=== PATIENT | male | born 1935 | race Caucasian/White ===

== ENCOUNTER 2017-11-11 13:12 | Inpatient (IN) | payer MEDICARE, BC ==
[2017-11-11] MEDS: DEXTROSE 5%-0.45% NACL 1,000 ML IV ×2 (02:00→15:30)
[~2017-11-11 13:12] MED LIST: ETOMIDATE 20 MG INJ; LORAZEPAM 2 MG INJ; MIDAZOLAM 1 MG/ML 2 ML INJ; PROPOFOL 200 MG INJ; SUCCINYLCHOLINE CHLORIDE 100 MG/5 ML SYG IV
[2017-11-11] MEDS: SODIUM CHLORIDE 0.9% 1L BAG IV* (13:29)
[2017-11-11] MEDS: CEFTRIAXONE 1 GM/50 ML (PMX) 50 ML IVPB (13:32)
[2017-11-11] MEDS: PROPOFOL 100 ML IV (13:41)
[2017-11-11 13:44] LABS: ADD MAN DIFF? NO
[2017-11-11 13:55] LABS: WHITE BLOOD COUNT 19.3 10^3/ul (4.8-10.8)
[2017-11-11 13:55] LABS: ADD UMIC YES; BASOPHILS % 0.2 % (0.0-2.0); HEMATOCRIT 51.6 % (42.0-52.0); HEMOGLOBIN 15.6 g/dl (14.0-18.0); LYMPHOCYTES # 4.7 10^3/ul (0.8-2.9); LYMPHOCYTES % 24.5 % (15.0-51.0); MEAN CORPUSCULAR HEMOGLOBIN 26.9 pg (29.0-33.0); MEAN CORPUSCULAR HGB CONC 30.2 g/dl (32.0-37.0); MEAN CORPUSCULAR VOLUME 88.8 fl (82.0-101.0); MEAN PLATELET VOLUME 11.2 fl (7.4-10.4); MONOCYTE # 1.2 10^3/ul (0.3-0.9); NEUTROPHIL # 13.3 10^3/ul (1.6-7.5); NEUTROPHILS % 68.9 % (39.0-77.0); PLATELET COUNT 212 10^3/UL (140-415); RED BLOOD COUNT 5.81 10^6/ul (4.70-6.10); RED CELL DISTRIBUTION WIDTH 12.7 % (11.5-14.5); UR ASCORBIC ACID NEGATIVE (NEGATIVE); UR BILIRUBIN (Dip) NEGATIVE (NEGATIVE); UR BLOOD (Dip) 2+ mg/dL (NEGATIVE); UR CLARITY SLIGHTLY CLOUDY (CLEAR); UR COLOR YELLOW (YELLOW); UR GLUCOSE (Dip) 3+ mg/dL (NEGATIVE); UR KETONES (Dip) 1+ mg/dL (NEGATIVE); UR LEUKOCYTE ESTERASE (Dip) NEGATIVE Leu/ul (NEGATIVE); UR NITRITE (Dip) NEGATIVE (NEGATIVE); UR RBC 2 /HPF (0-5); UR SPECIFIC GRAVITY (Dip) 1.025 (1.003-1.030); UR SQUAMOUS EPITHELIAL CELL FEW /HPF (FEW); UR TOTAL PROTEIN (Dip) NEGATIVE (NEGATIVE); UR UROBILINOGEN (Dip) NEGATIVE (NEGATIVE); UR WBC 1 /HPF (0-5)
[2017-11-11 14:03] LABS: AADO2 Arterial 169.8 mmHg (7.0-24.0); Allen Test ACCEPTAB; Arterial Base Excess -16.5 mmol/L (-3.0-3); Arterial Blood Gas Oxygen Sat 99.8 mmHG (95.0-100.0); Arterial COHb 0.3 % (0.0-3.0); Arterial HCO3 11.2 mmol/L (22.0-26.0); Arterial MetHb 0.5 % (0.0-1.5); Arterial Total Hemglobin 15.5 g/dl (12.0-18.0); Arterial pCO2 32.9 mmhg (35-45); MODE VENT - AC; Site Left Radial
[2017-11-11 14:08] LABS: ALANINE AMINOTRANSFERASE 40 IU/L (13-69); ALBUMIN 4.3 g/dl (3.3-4.9); ALBUMIN/GLOBULIN RATIO 1.38; ALKALINE PHOSPHATASE 81 IU/L (42-121); ANION GAP 31 (8-16); ASPARTATE AMINO TRANSFERASE 46 IU/L (15-46); BILIRUBIN,INDIRECT 1.7 mg/dl (0-1.1); BILIRUBIN,TOTAL 1.7 mg/dl (0.2-1.3); BLOOD UREA NITROGEN 57 mg/dl (7-20); CALCIUM 8.7 mg/dl (8.4-10.2); CARBON DIOXIDE 12 mmol/L (21-31); CHLORIDE 112 mmol/L (97-110); CREATINE KINASE 1412 IU/L (23-200); CREATININE 2.53 mg/dl (0.61-1.24); LIPASE 45 U/L (23-300); MAGNESIUM 2.9 mg/dl (1.7-2.5); POTASSIUM 5.3 mmol/L (3.5-5.1); SODIUM 150 mmol/L (135-144); TOTAL PROTEIN 7.4 g/dl (6.1-8.1)
[2017-11-11] MEDS: PIPER-TAZO 3.375 GM IV (PMX) 100 ML IVPB (14:08)
[2017-11-11] MEDS: ACETAMINOPHEN 650 MG SUPP PR (14:08)
[2017-11-11 14:10] LABS: INR 1.09; PROTIME 14.2 Sec (11.9-14.9); PT RATIO 1.1
[2017-11-11 14:11] LABS: PARTIAL THROMBOPLASTIN TIME 23.5 Sec (25.0-35.0)
[2017-11-11 14:19] LABS: GLUCOSE 869 mg/dl (70-220); TROPONIN-I 0.041 ng/ml (0.000-0.120)
[2017-11-11] MEDS: MIDAZOLAM (DRIP) 50 mg/50 mL 50 ML IV (14:19)
[2017-11-11] MEDS ORDERED: POTASSIUM CHLORIDE IV (14:27)
[2017-11-11] MEDS ORDERED: SODIUM CHLORIDE IV (14:27)
[2017-11-11] MEDS ORDERED: DEXTROSE 10% IV (14:27)
[2017-11-11] MEDS ORDERED: POTASSIUM CHLORIDE 30 MEQ in SOD CHLORIDE 0.9% 1,000 ML IV (14:27)
[2017-11-11] MEDS ORDERED: POTASSIUM CHLORIDE 50 ML IVPB (14:30)
[2017-11-11] MEDS ORDERED: DEXTROSE 50% 50 ML SYRINGE IV ×2 (15:00)
[2017-11-11] MEDS: INSULIN HUMAN REGULAR 100 UNIT in SOD CHLORIDE 0.9% 99 ML IV ×2 (15:15→15:16)
[2017-11-11] MEDS: ACCU-CHEK XX ×9 (15:16→23:00)
[2017-11-11] MEDS ORDERED: ACETAMINOPHEN 325 MG TAB PO (15:30)
[2017-11-11] MEDS ORDERED: ONDANSETRON 4 MG INJ IV (15:30)
[2017-11-11] MEDS ORDERED: MAGNESIUM HYDROXIDE 30ML CUP PO (15:30)
[2017-11-11] MEDS ORDERED: NACL 0.9% 3 ML SYG IV (15:30)
[2017-11-11] MEDS ORDERED: HYDROCODONE/APAP (5/325) TAB PO (15:30)
[2017-11-11] MEDS ORDERED: BISACODYL (EC) 5 MG TAB PO (15:30)
[2017-11-11] MEDS ORDERED: DOCUSATE SODIUM 100 MG CAP PO (15:30)
[2017-11-11] MEDS: DILTIAZEM 25 MG INJ IV (15:43)
[2017-11-11] MEDS: ETOMIDATE 20 MG INJ IV (16:30)
[2017-11-11] MEDS: PROPOFOL 200 MG INJ IV (16:30)
[2017-11-11] MEDS: SUCCINYLCHOLINE CHLORIDE 100 MG/5 ML SYG IV (16:30)
[2017-11-11] MEDS: LORAZEPAM 2 MG INJ IV (16:30)
[2017-11-11] MEDS: MIDAZOLAM 1 MG/ML 2 ML INJ IV (16:30)
[2017-11-11 16:49] LABS: LACTIC ACID 2.7 mmol/L (0.5-2.0)
[2017-11-11 16:53] LABS: AMPHETAMINE/METHAMPHETAMINE Negative (NEGATIVE); BARBITURATES Negative (NEGATIVE); CANNABINOIDS Negative (NEGATIVE); COCAINE Negative (NEGATIVE); OPIATES Negative (NEGATIVE)
[2017-11-11 16:54] LABS: BENZODIAZEPINES Positive (NEGATIVE)
[2017-11-11 18:15] LABS: URIC ACID 11.3 mg/dl (3.1-7.9)
[2017-11-11 18:17] LABS: ALBUMIN 3.5 g/dl (3.3-4.9); ANION GAP 17 (8-16); BLOOD UREA NITROGEN 65 mg/dl (7-20); CALCIUM 8.2 mg/dl (8.4-10.2); CARBON DIOXIDE 16 mmol/L (21-31); CHLORIDE 125 mmol/L (97-110); CREATININE 2.08 mg/dl (0.61-1.24); POTASSIUM 4.5 mmol/L (3.5-5.1); SODIUM 153 mmol/L (135-144)
[2017-11-11 18:35] LABS: GLUCOSE 580 mg/dl (70-220)
[2017-11-11 18:36] LABS: LACTIC ACID 2.1 mmol/L (0.5-2.0)
[2017-11-11] MEDS: SOD CHLORIDE 0.45% 1,000 ML IV (19:02)
[2017-11-11] MEDS: PIPER-TAZO 2.25 GM (PMX) 50 ML IVPB (19:07)
[2017-11-11 20:57] LABS: ANION GAP 13 (8-16); BLOOD UREA NITROGEN 62 mg/dl (7-20); CALCIUM 8.4 mg/dl (8.4-10.2); CARBON DIOXIDE 19 mmol/L (21-31); CHLORIDE 126 mmol/L (97-110); CREATININE 1.98 mg/dl (0.61-1.24); SODIUM 154 mmol/L (135-144)
[2017-11-11 21:03] LABS: GLUCOSE 421 mg/dl (70-220)
[2017-11-11] MEDS ORDERED: ONDANSETRON 4 MG INJ (23:31)
[2017-11-12] MEDS: PIPER-TAZO 2.25 GM (PMX) 50 ML IVPB ×4 (00:06→17:09)
[2017-11-12] MEDS: SOD CHLORIDE 0.45% 1,000 ML IV ×2 (00:10→04:20)
[2017-11-12] MEDS: ACCU-CHEK XX ×26 (01:00→23:00)
[2017-11-12] MEDS: SOD CHLORIDE 0.9% 1,000 ML IV (01:44)
[2017-11-12] MEDS: DEXTROSE 5%-0.45% NACL 1,000 ML IV ×2 (02:00→04:50)
[2017-11-12] MEDS: INSULIN HUMAN REGULAR 100 UNIT in SOD CHLORIDE 0.9% 99 ML IV ×5 (02:16→22:04)
[2017-11-12] MEDS ORDERED: VANCOMYCIN IV PER PHARMACY XX (03:30)
[2017-11-12 03:42] LABS: ANION GAP 12 (8-16)
[2017-11-12 03:56] LABS: BLOOD UREA NITROGEN 64 mg/dl (7-20); CALCIUM 8.1 mg/dl (8.4-10.2); CARBON DIOXIDE 20 mmol/L (21-31); CHLORIDE 130 mmol/L (97-110); CREATININE 2.01 mg/dl (0.61-1.24); GLUCOSE 79 mg/dl (70-220); POTASSIUM 3.6 mmol/L (3.5-5.1); SODIUM 158 mmol/L (135-144)
[2017-11-12] MEDS: MIDAZOLAM (DRIP) 50 mg/50 mL 50 ML IV (04:32)
[2017-11-12] MEDS: NORepinephrine 8MG/250 ML (PMX 250 ML IV (04:53)
[2017-11-12] MEDS: VANCOMYCIN 1.25 GM in SOD CHLORIDE 0.9% 250 ML IVPB (05:04)
[2017-11-12 05:45] LABS: AADO2 Arterial 89.7 mmHg (7.0-24.0); Allen Test ACCEPTAB; Arterial Base Excess -7.9 mmol/L (-3.0-3); Arterial Blood Gas Oxygen Sat 95.9 mmHG (95.0-100.0); Arterial COHb 0.2 % (0.0-3.0); Arterial Fraction of Oxyhgb 95.5 % (93.0-99.0); Arterial HCO3 17.4 mmol/L (22.0-26.0); Arterial MetHb 0.2 % (0.0-1.5); Arterial Total Hemglobin 13.7 g/dl (12.0-18.0); Arterial pCO2 34.8 mmhg (35-45); MODE VENT - AC; Site Right Radial
[2017-11-12] MEDS: PANTOPRAZOLE 40 MG INJ IV (06:06)
[2017-11-12 06:34] LABS: SODIUM,URINE RANDOM < 13 mmol/L (30-90)
[2017-11-12 06:58] LABS: ADD MAN DIFF? NO
[2017-11-12 07:05] LABS: WHITE BLOOD COUNT 18.4 10^3/ul (4.8-10.8)
[2017-11-12 07:05] LABS: BASOPHILS % 0.1 % (0.0-2.0); HEMATOCRIT 40.5 % (42.0-52.0); HEMOGLOBIN 12.4 g/dl (14.0-18.0); LYMPHOCYTES # 3.7 10^3/ul (0.8-2.9); LYMPHOCYTES % 20.2 % (15.0-51.0); MEAN CORPUSCULAR HEMOGLOBIN 26.3 pg (29.0-33.0); MEAN CORPUSCULAR HGB CONC 30.6 g/dl (32.0-37.0); MEAN PLATELET VOLUME 10.9 fl (7.4-10.4); MONOCYTE # 1.2 10^3/ul (0.3-0.9); MONOCYTES % 6.5 % (0.0-11.0); NEUTROPHIL # 13.4 10^3/ul (1.6-7.5); NEUTROPHILS % 72.7 % (39.0-77.0); PLATELET COUNT 154 10^3/UL (140-415); RED BLOOD COUNT 4.71 10^6/ul (4.70-6.10); RED CELL DISTRIBUTION WIDTH 12.9 % (11.5-14.5)
[2017-11-12 07:23] LABS: ALANINE AMINOTRANSFERASE 36 IU/L (13-69); ALBUMIN/GLOBULIN RATIO 1.15; ALKALINE PHOSPHATASE 58 IU/L (42-121); ANION GAP 9 (8-16); ASPARTATE AMINO TRANSFERASE 44 IU/L (15-46); BILIRUBIN,INDIRECT 1.2 mg/dl (0-1.1); BILIRUBIN,TOTAL 1.2 mg/dl (0.2-1.3); BLOOD UREA NITROGEN 65 mg/dl (7-20); CALCIUM 8.1 mg/dl (8.4-10.2); CARBON DIOXIDE 21 mmol/L (21-31); CHLORIDE 129 mmol/L (97-110); CHOL/HDL RATIO 4.4 RATIO; CHOLESTEROL 177 mg/dl (100-200); CREATININE 1.93 mg/dl (0.61-1.24); GLUCOSE 169 mg/dl (70-220); HDL CHOLESTEROL 40 mg/dl (31-75); LDL CHOLESTEROL,CALCULATED 114 mg/dl; MAGNESIUM 2.6 mg/dl (1.7-2.5); POTASSIUM 3.8 mmol/L (3.5-5.1); SODIUM 155 mmol/L (135-144); TOTAL PROTEIN 5.6 g/dl (6.1-8.1); TRIGLYCERIDES 114 mg/dl (0-149)
[2017-11-12 07:51] LABS: THYROID STIMULATING HORMONE 0.367 MIU/L (0.465-4.680)
[2017-11-12] MEDS ORDERED: DEXTROSE 50% 50 ML SYRINGE IV ×2 (09:00)
[2017-11-12] MEDS: DEXTROSE 5% 1,000 ML IV ×2 (09:32→21:50)
[2017-11-12] MEDS ORDERED: ALLOPURINOL 100 MG TAB NGT (10:00)
[2017-11-12] MEDS: ALLOPURINOL 100 MG TAB PO (11:00)
[2017-11-12] MEDS: INSULIN GLARGINE [LANTus] (100 UNITS/ML) SYG SC (12:22)
[2017-11-12 12:50] LABS: CREATINE KINASE 967 IU/L (23-200)
[2017-11-12 12:51] LABS: ANION GAP 8 (8-16); BLOOD UREA NITROGEN 60 mg/dl (7-20); CALCIUM 8.1 mg/dl (8.4-10.2); CARBON DIOXIDE 20 mmol/L (21-31); CHLORIDE 130 mmol/L (97-110); CREATININE 1.78 mg/dl (0.61-1.24); GLUCOSE 108 mg/dl (70-220); POTASSIUM 3.9 mmol/L (3.5-5.1); SODIUM 154 mmol/L (135-144)
[2017-11-12] MEDS: LORAZEPAM 2 MG INJ IV (16:10)
[2017-11-12 18:56] LABS: MAGNESIUM 2.4 mg/dl (1.7-2.5)
[2017-11-12 18:57] LABS: ANION GAP 11 (8-16); BLOOD UREA NITROGEN 56 mg/dl (7-20); CALCIUM 8.2 mg/dl (8.4-10.2); CARBON DIOXIDE 19 mmol/L (21-31); CHLORIDE 127 mmol/L (97-110); CREATININE 1.72 mg/dl (0.61-1.24); GLUCOSE 120 mg/dl (70-220); POTASSIUM 3.6 mmol/L (3.5-5.1); SODIUM 153 mmol/L (135-144)
[2017-11-12] MEDS: POTASSIUM CHLORIDE 50 ML IVPB ×2 (21:10→22:14)
[2017-11-12 23:41] LABS: ANION GAP 7 (8-16); BLOOD UREA NITROGEN 55 mg/dl (7-20); CALCIUM 8.3 mg/dl (8.4-10.2); CARBON DIOXIDE 20 mmol/L (21-31); CHLORIDE 128 mmol/L (97-110); CREATININE 1.56 mg/dl (0.61-1.24); GLUCOSE 132 mg/dl (70-220); POTASSIUM 3.9 mmol/L (3.5-5.1); SODIUM 151 mmol/L (135-144)
[2017-11-13] MEDS: PIPER-TAZO 2.25 GM (PMX) 50 ML IVPB ×3 (00:09→12:39)
[2017-11-13] MEDS: ACCU-CHEK XX ×15 (01:00→14:11)
[2017-11-13] MEDS: FENTAnyl (DRIP) 1000 mcg/100mL 100 ML IV (04:14)
[2017-11-13] MEDS: PROPOFOL 100 ML IV ×3 (04:40→15:09)
[2017-11-13 04:55] LABS: ABNORMAL IP MESSAGE 1; ADD MAN DIFF? NO; BASOPHILS % 0.1 % (0.0-2.0); HEMATOCRIT 41.9 % (42.0-52.0); HEMOGLOBIN 12.8 g/dl (14.0-18.0); LYMPHOCYTES # 3.9 10^3/ul (0.8-2.9); MEAN CORPUSCULAR HEMOGLOBIN 26.6 pg (29.0-33.0); MEAN CORPUSCULAR HGB CONC 30.5 g/dl (32.0-37.0); MEAN CORPUSCULAR VOLUME 86.9 fl (82.0-101.0); MEAN PLATELET VOLUME 10.2 fl (7.4-10.4); MONOCYTE # 0.8 10^3/ul (0.3-0.9); MONOCYTES % 4.8 % (0.0-11.0); NEUTROPHIL # 12.2 10^3/ul (1.6-7.5); NEUTROPHILS % 71.7 % (39.0-77.0); PLATELET COUNT 88 10^3/UL (140-415); POSITIVE DIFF @See below; RED BLOOD COUNT 4.82 10^6/ul (4.70-6.10); RED CELL DISTRIBUTION WIDTH 13.1 % (11.5-14.5)
[2017-11-13 05:14] LABS: ANION GAP 8 (8-16); BLOOD UREA NITROGEN 52 mg/dl (7-20); CALCIUM 8.4 mg/dl (8.4-10.2); CARBON DIOXIDE 21 mmol/L (21-31); CHLORIDE 125 mmol/L (97-110); CREATININE 1.56 mg/dl (0.61-1.24); GLUCOSE 204 mg/dl (70-220); MAGNESIUM 2.5 mg/dl (1.7-2.5); PHOSPHORUS 2.7 mg/dl (2.5-4.9); POTASSIUM 3.8 mmol/L (3.5-5.1); SODIUM 150 mmol/L (135-144)
[2017-11-13] MEDS: PANTOPRAZOLE 40 MG INJ IV (05:35)
[2017-11-13] MEDS: POTASSIUM CHLORIDE 50 ML IVPB (07:22)
[2017-11-13] MEDS: ALLOPURINOL 100 MG TAB PO (08:52)
[2017-11-13] MEDS: BALSAM PERU/CASTOR OIL 60 GM TUBE TOP (08:52)
[2017-11-13] MEDS: INSULIN GLARGINE [LANTus] (100 UNITS/ML) SYG SC (08:54)
[2017-11-13 10:24] LABS: AADO2 Arterial 139.3 mmHg (7.0-24.0); Allen Test ACCEPTAB; Arterial Blood Gas Oxygen Sat 95.4 mmHG (95.0-100.0); Arterial COHb 0.3 % (0.0-3.0); Arterial Fraction of Oxyhgb 94.9 % (93.0-99.0); Arterial HCO3 19.5 mmol/L (22.0-26.0); Arterial MetHb 0.2 % (0.0-1.5); Arterial Total Hemglobin 13.7 g/dl (12.0-18.0); Arterial pCO2 31.4 mmhg (35-45); Blood Gas PS 10; MODE VENT - CPAP; Site Right Radial
[2017-11-13] MEDS: ASPIRIN (EC) 325 MG TAB PO (11:31)
[2017-11-13] MEDS: LEVOFLOXACIN 500MG/D5W (PMX) 100 ML IVPB (14:35)
[2017-11-13] MEDS: DEXTROSE 5% 1,000 ML IV (14:38)
[2017-11-13] MEDS ORDERED: GLUCOSE GEL 15 GRAM TUBE BUCCAL (15:00)
[2017-11-13] MEDS ORDERED: GLUCOSE GEL 15 GRAM TUBE PO ×2 (15:00)
[2017-11-13] MEDS ORDERED: DEXTROSE 50% 50 ML SYRINGE IV ×2 (15:00)
[2017-11-13] MEDS ORDERED: GLUCAGON 1 MG INJ IM (15:00)
[2017-11-13 16:22] LABS: ANION GAP 7 (8-16); BLOOD UREA NITROGEN 46 mg/dl (7-20); CALCIUM 8.4 mg/dl (8.4-10.2); CARBON DIOXIDE 21 mmol/L (21-31); CHLORIDE 124 mmol/L (97-110); GLUCOSE 140 mg/dl (70-220); POTASSIUM 3.8 mmol/L (3.5-5.1); SODIUM 148 mmol/L (135-144)
[2017-11-13] MEDS ORDERED: VANCOMYCIN 1 GM 250 ML IVPB (17:00)
[2017-11-13] MEDS: INSULIN ASPART [NOVOLOG] 3 ML PEN SC ×2 (17:46→21:18)
[2017-11-13] MEDS: VANCOMYCIN 1 GM in DEXTROSE 5% 250 ML IVPB (18:05)
[2017-11-13 18:24] LABS: ANION GAP 9 (8-16); BLOOD UREA NITROGEN 49 mg/dl (7-20); CALCIUM 8.3 mg/dl (8.4-10.2); CARBON DIOXIDE 21 mmol/L (21-31); CHLORIDE 124 mmol/L (97-110); CREATININE 1.23 mg/dl (0.61-1.24); GLUCOSE 208 mg/dl (70-220); POTASSIUM 4.1 mmol/L (3.5-5.1); SODIUM 150 mmol/L (135-144)
[2017-11-14] MEDS: INSULIN ASPART [NOVOLOG] 3 ML PEN SC ×6 (01:16→22:20)
[2017-11-14] MEDS ORDERED: ACCU-CHEK XX (02:00)
[2017-11-14] MEDS ORDERED: VANCOMYCIN 1 GM 250 ML IVPB (04:00)
[2017-11-14] MEDS: DEXTROSE 5% 1,000 ML IV ×2 (04:59→19:14)
[2017-11-14 05:23] LABS: ADD MAN DIFF? NO
[2017-11-14 05:25] LABS: ABNORMAL IP MESSAGE 1; BASOPHILS % 0.2 % (0.0-2.0); EOSINOPHILS % 0.1 % (0.0-7.0); HEMATOCRIT 36.5 % (42.0-52.0); HEMOGLOBIN 11.6 g/dl (14.0-18.0); LYMPHOCYTES # 2.9 10^3/ul (0.8-2.9); LYMPHOCYTES % 21.6 % (15.0-51.0); MEAN CORPUSCULAR HEMOGLOBIN 27.2 pg (29.0-33.0); MEAN CORPUSCULAR HGB CONC 31.8 g/dl (32.0-37.0); MEAN CORPUSCULAR VOLUME 85.7 fl (82.0-101.0); MEAN PLATELET VOLUME 11.9 fl (7.4-10.4); MONOCYTE # 0.5 10^3/ul (0.3-0.9); MONOCYTES % 3.6 % (0.0-11.0); NEUTROPHILS % 73.8 % (39.0-77.0); PLATELET COUNT 77 10^3/UL (140-415); POSITIVE DIFF @See below; RED BLOOD COUNT 4.26 10^6/ul (4.70-6.10)
[2017-11-14 05:25] LABS: WHITE BLOOD COUNT 13.5 10^3/ul (4.8-10.8)
[2017-11-14] MEDS: PANTOPRAZOLE 40 MG INJ IV (05:59)
[2017-11-14 06:01] LABS: ANION GAP 8 (8-16); BLOOD UREA NITROGEN 37 mg/dl (7-20); CALCIUM 8.8 mg/dl (8.4-10.2); CARBON DIOXIDE 21 mmol/L (21-31); CHLORIDE 121 mmol/L (97-110); CREATININE 1.14 mg/dl (0.61-1.24); GLUCOSE 246 mg/dl (70-220); MAGNESIUM 2.3 mg/dl (1.7-2.5); PHOSPHORUS 1.3 mg/dl (2.5-4.9); POTASSIUM 3.4 mmol/L (3.5-5.1); SODIUM 147 mmol/L (135-144)
[2017-11-14] MEDS: morphine 2 MG INJ IV ×2 (06:31→22:22)
[2017-11-14] MEDS: DILTIAZEM 25 MG INJ IV (07:00)
[2017-11-14] MEDS: ASPIRIN (EC) 325 MG TAB PO (08:12)
[2017-11-14] MEDS: ALLOPURINOL 100 MG TAB PO (08:12)
[2017-11-14] MEDS: INSULIN GLARGINE [LANTus] (100 UNITS/ML) SYG SC ×2 (08:39→11:31)
[2017-11-14] MEDS: BALSAM PERU/CASTOR OIL 60 GM TUBE TOP (08:42)
[2017-11-14] MEDS: POTASSIUM PHOSPHATE 30 MM in SOD CHLORIDE 0.9% 250 ML IVPB (09:18)
[2017-11-14] MEDS: CEFTRIAXONE 500 MG in SOD CHLORIDE 0.9% 50 ML IVPB (11:30)
[2017-11-14] MEDS: AMIODARONE 150MG/D5W BOLUS 100 ML IV (13:32)
[2017-11-14] MEDS: AMIODARONE 900 MG in DEXTROSE 5% 482 ML IV (14:31)
[2017-11-14 17:16] LABS: ANION GAP 9 (8-16); BLOOD UREA NITROGEN 31 mg/dl (7-20); CALCIUM 8.4 mg/dl (8.4-10.2); CARBON DIOXIDE 22 mmol/L (21-31); CHLORIDE 117 mmol/L (97-110); CREATININE 1.06 mg/dl (0.61-1.24); GLUCOSE 274 mg/dl (70-220); POTASSIUM 3.6 mmol/L (3.5-5.1); SODIUM 144 mmol/L (135-144)
[2017-11-14] MEDS: VANCOMYCIN 1 GM in DEXTROSE 5% 250 ML IVPB (18:07)
[2017-11-14] MEDS: CEFTRIAXONE 1 GM/NS 50 ML IVPB (21:18)
[2017-11-15] MEDS: LORAZEPAM 2 MG INJ IV (00:12)
[2017-11-15] MEDS: INSULIN ASPART [NOVOLOG] 3 ML PEN SC ×6 (00:53→20:49)
[2017-11-15] MEDS: PANTOPRAZOLE 40 MG INJ IV (05:20)
[2017-11-15 06:08] LABS: ADD MAN DIFF? NO
[2017-11-15 06:11] LABS: WHITE BLOOD COUNT 12.5 10^3/ul (4.8-10.8)
[2017-11-15 06:11] LABS: ABNORMAL IP MESSAGE 1; BASOPHILS % 0.2 % (0.0-2.0); EOSINOPHILS # 0.1 10^3/ul (0.0-0.5); EOSINOPHILS % 0.6 % (0.0-7.0); HEMATOCRIT 35.8 % (42.0-52.0); HEMOGLOBIN 11.1 g/dl (14.0-18.0); LYMPHOCYTES # 3.3 10^3/ul (0.8-2.9); LYMPHOCYTES % 26.1 % (15.0-51.0); MEAN CORPUSCULAR HEMOGLOBIN 26.3 pg (29.0-33.0); MEAN CORPUSCULAR VOLUME 84.8 fl (82.0-101.0); MEAN PLATELET VOLUME 11.6 fl (7.4-10.4); MONOCYTE # 0.7 10^3/ul (0.3-0.9); MONOCYTES % 5.9 % (0.0-11.0); NEUTROPHIL # 8.3 10^3/ul (1.6-7.5); NEUTROPHILS % 66.9 % (39.0-77.0); PLATELET COUNT 75 10^3/UL (140-415); POSITIVE DIFF @See below; RED BLOOD COUNT 4.22 10^6/ul (4.70-6.10)
[2017-11-15 07:01] LABS: CHOL/HDL RATIO 4.4 RATIO; HDL CHOLESTEROL 29 mg/dl (31-75); LDL CHOLESTEROL,CALCULATED 75 mg/dl; TRIGLYCERIDES 130 mg/dl (0-149)
[2017-11-15 07:01] LABS: CHOLESTEROL 130 mg/dl (100-200)
[2017-11-15 07:02] LABS: URIC ACID 3.5 mg/dl (3.1-7.9)
[2017-11-15 07:07] LABS: B-TYPE NATRIURETIC PEPTIDE 4330 PG/ML (0-450)
[2017-11-15 07:54] LABS: ANION GAP 8 (8-16); BLOOD UREA NITROGEN 27 mg/dl (7-20); CALCIUM 8.4 mg/dl (8.4-10.2); CARBON DIOXIDE 24 mmol/L (21-31); CHLORIDE 117 mmol/L (97-110); CREATININE 0.96 mg/dl (0.61-1.24); GLUCOSE 183 mg/dl (70-220); MAGNESIUM 2.1 mg/dl (1.7-2.5); PHOSPHORUS 2.7 mg/dl (2.5-4.9); POTASSIUM 3.3 mmol/L (3.5-5.1); SODIUM 146 mmol/L (135-144)
[2017-11-15] MEDS: ASPIRIN (EC) 325 MG TAB PO (08:27)
[2017-11-15] MEDS: ALLOPURINOL 100 MG TAB PO (08:27)
[2017-11-15] MEDS: BALSAM PERU/CASTOR OIL 60 GM TUBE TOP (08:28)
[2017-11-15] MEDS: INSULIN GLARGINE [LANTus] (100 UNITS/ML) SYG SC (08:31)
[2017-11-15] MEDS: DEXTROSE 5% 1,000 ML IV (09:32)
[2017-11-15] MEDS: POTASSIUM CHLORIDE 100 ML IVPB ×2 (11:34→13:30)
[2017-11-15 18:16] LABS: VANCOMYCIN,TROUGH < 5.0 ug/ml (10.0-20.0)
[2017-11-15] MEDS: VANCOMYCIN 1 GM in DEXTROSE 5% 250 ML IVPB (18:30)
[2017-11-15] MEDS: morphine 2 MG INJ IV (21:20)
[2017-11-15] MEDS: CEFTRIAXONE 1 GM/NS 50 ML IVPB (21:20)
[2017-11-16] MEDS: DEXTROSE 5% 1,000 ML IV ×2 (00:16→14:09)
[2017-11-16] MEDS: INSULIN ASPART [NOVOLOG] 3 ML PEN SC ×6 (01:18→20:14)
[2017-11-16] MEDS: PANTOPRAZOLE 40 MG INJ IV (05:32)
[2017-11-16] MEDS: VANCOMYCIN 750 MG in DEXTROSE 5% 150 ML IVPB (05:32)
[2017-11-16] MEDS: INSULIN GLARGINE [LANTus] (100 UNITS/ML) SYG SC (07:40)
[2017-11-16] MEDS: ASPIRIN (EC) 325 MG TAB PO (07:41)
[2017-11-16] MEDS: ALLOPURINOL 100 MG TAB PO (07:41)
[2017-11-16] MEDS: BALSAM PERU/CASTOR OIL 60 GM TUBE TOP (07:44)
[2017-11-16 09:08] LABS: ADD MAN DIFF? NO
[2017-11-16 09:25] LABS: BASOPHILS % 0.2 % (0.0-2.0); EOSINOPHILS # 0.1 10^3/ul (0.0-0.5); EOSINOPHILS % 0.7 % (0.0-7.0); HEMATOCRIT 38.2 % (42.0-52.0); HEMOGLOBIN 12.1 g/dl (14.0-18.0); LYMPHOCYTES # 2.7 10^3/ul (0.8-2.9); LYMPHOCYTES % 24.2 % (15.0-51.0); MEAN CORPUSCULAR HEMOGLOBIN 26.4 pg (29.0-33.0); MEAN CORPUSCULAR HGB CONC 31.7 g/dl (32.0-37.0); MEAN CORPUSCULAR VOLUME 83.4 fl (82.0-101.0); MONOCYTE # 1.3 10^3/ul (0.3-0.9); MONOCYTES % 11.4 % (0.0-11.0); NEUTROPHIL # 6.9 10^3/ul (1.6-7.5); NEUTROPHILS % 62.9 % (39.0-77.0); PLATELET COUNT 104 10^3/UL (140-415); RED BLOOD COUNT 4.58 10^6/ul (4.70-6.10); RED CELL DISTRIBUTION WIDTH 12.6 % (11.5-14.5)
[2017-11-16 09:44] LABS: ANION GAP 11 (8-16); BLOOD UREA NITROGEN 17 mg/dl (7-20); CALCIUM 8.5 mg/dl (8.4-10.2); CARBON DIOXIDE 23 mmol/L (21-31); CHLORIDE 109 mmol/L (97-110); CREATININE 0.86 mg/dl (0.61-1.24); GLUCOSE 242 mg/dl (70-220); MAGNESIUM 1.7 mg/dl (1.7-2.5); PHOSPHORUS 2.8 mg/dl (2.5-4.9); POTASSIUM 3.1 mmol/L (3.5-5.1); SODIUM 140 mmol/L (135-144)
[2017-11-16] MEDS: POTASSIUM CHLORIDE (SR) 20 MEQ TAB PO (12:15)
[2017-11-16] MEDS: MAGNESIUM SULFATE 2 GM/50 ML 50 ML IVPB (13:29)
[2017-11-16] MEDS ORDERED: POTASSIUM CHLORIDE 50 ML IVPB (13:30)
[2017-11-16] MEDS: VANCOMYCIN 1 GM in DEXTROSE 5% 250 ML IVPB (16:00)
[2017-11-16] MEDS: POTASSIUM CHLORIDE 50 ML IVPB ×2 (16:00→18:29)
[2017-11-16] MEDS: LORAZEPAM 2 MG INJ IV (21:37)
[2017-11-16] MEDS: CEFTRIAXONE 1 GM/NS 50 ML IVPB (22:51)
[2017-11-17] MEDS: INSULIN ASPART [NOVOLOG] 3 ML PEN SC ×6 (00:23→21:18)
[2017-11-17] MEDS: VANCOMYCIN 1 GM in DEXTROSE 5% 250 ML IVPB ×2 (04:39→17:16)
[2017-11-17 06:55] LABS: ADD MAN DIFF? NO
[2017-11-17 07:00] LABS: BASOPHILS % 0.3 % (0.0-2.0); EOSINOPHILS # 0.1 10^3/ul (0.0-0.5); EOSINOPHILS % 1.4 % (0.0-7.0); HEMATOCRIT 42.5 % (42.0-52.0); HEMOGLOBIN 13.6 g/dl (14.0-18.0); LYMPHOCYTES # 2.9 10^3/ul (0.8-2.9); LYMPHOCYTES % 28.5 % (15.0-51.0); MEAN CORPUSCULAR HEMOGLOBIN 26.6 pg (29.0-33.0); MEAN PLATELET VOLUME 11.5 fl (7.4-10.4); MONOCYTE # 1.2 10^3/ul (0.3-0.9); MONOCYTES % 12.1 % (0.0-11.0); NEUTROPHIL # 5.9 10^3/ul (1.6-7.5); PLATELET COUNT 123 10^3/UL (140-415); POSITIVE DIFF @See below; RED BLOOD COUNT 5.12 10^6/ul (4.70-6.10); RED CELL DISTRIBUTION WIDTH 12.3 % (11.5-14.5)
[2017-11-17 07:00] LABS: WHITE BLOOD COUNT 10.3 10^3/ul (4.8-10.8)
[2017-11-17 07:09] LABS: INR 1.08; PROTIME 14.1 Sec (11.9-14.9); PT RATIO 1.1
[2017-11-17] MEDS: BALSAM PERU/CASTOR OIL 60 GM TUBE TOP (07:37)
[2017-11-17] MEDS: FAMOTIDINE 20 MG INJ IV (07:37)
[2017-11-17] MEDS: INSULIN GLARGINE [LANTus] (100 UNITS/ML) SYG SC (07:41)
[2017-11-17 07:48] LABS: ALANINE AMINOTRANSFERASE 49 IU/L (13-69); ALBUMIN 3.3 g/dl (3.3-4.9); ALBUMIN/GLOBULIN RATIO 1.06; ALKALINE PHOSPHATASE 107 IU/L (42-121); ANION GAP 11 (8-16); ASPARTATE AMINO TRANSFERASE 42 IU/L (15-46); BILIRUBIN,INDIRECT 1.3 mg/dl (0-1.1); BILIRUBIN,TOTAL 1.3 mg/dl (0.2-1.3); BLOOD UREA NITROGEN 13 mg/dl (7-20); CARBON DIOXIDE 25 mmol/L (21-31); CHLORIDE 110 mmol/L (97-110); CREATININE 0.82 mg/dl (0.61-1.24); GLUCOSE 173 mg/dl (70-220); MAGNESIUM 1.8 mg/dl (1.7-2.5); PHOSPHORUS 3.4 mg/dl (2.5-4.9); POTASSIUM 3.2 mmol/L (3.5-5.1); SODIUM 143 mmol/L (135-144); TOTAL PROTEIN 6.4 g/dl (6.1-8.1)
[2017-11-17 07:53] LABS: CREATINE KINASE 89 IU/L (23-200)
[2017-11-17] MEDS: BARIUM SULFATE 135 ML (E-Z HD) PO (11:55)
[2017-11-17] MEDS: DEXTROSE 5% 1,000 ML IV (11:56)
[2017-11-17] MEDS: POTASSIUM CHLORIDE 100 ML IVPB ×2 (15:20→18:56)
[2017-11-17 18:23] LABS: RAPID PLASMA REAGIN NONREACTIVE (NR)
[2017-11-17 18:25] LABS: FOLATE 11.1 ng/ml (2.8-20.0)
[2017-11-17] MEDS: CEFTRIAXONE 1 GM/NS 50 ML IVPB (22:17)
[2017-11-18] MEDS: INSULIN ASPART [NOVOLOG] 3 ML PEN SC ×7 (01:51→21:13)
[2017-11-18 05:20] LABS: ADD MAN DIFF? NO
[2017-11-18 05:42] LABS: INR 1.09; PROTIME 14.2 Sec (11.9-14.9); PT RATIO 1.1
[2017-11-18 06:05] LABS: VANCOMYCIN,TROUGH 12.3 ug/ml (10.0-20.0)
[2017-11-18 06:06] LABS: WHITE BLOOD COUNT 9.6 10^3/ul (4.8-10.8)
[2017-11-18 06:06] LABS: BASOPHILS % 0.2 % (0.0-2.0); EOSINOPHILS # 0.2 10^3/ul (0.0-0.5); EOSINOPHILS % 1.7 % (0.0-7.0); HEMATOCRIT 38.1 % (42.0-52.0); HEMOGLOBIN 12.4 g/dl (14.0-18.0); LYMPHOCYTES # 2.9 10^3/ul (0.8-2.9); LYMPHOCYTES % 29.8 % (15.0-51.0); MEAN CORPUSCULAR HEMOGLOBIN 27.1 pg (29.0-33.0); MEAN CORPUSCULAR HGB CONC 32.5 g/dl (32.0-37.0); MEAN CORPUSCULAR VOLUME 83.2 fl (82.0-101.0); MEAN PLATELET VOLUME 10.8 fl (7.4-10.4); MONOCYTE # 1.2 10^3/ul (0.3-0.9); MONOCYTES % 12.2 % (0.0-11.0); NEUTROPHIL # 5.3 10^3/ul (1.6-7.5); NEUTROPHILS % 55.4 % (39.0-77.0); PLATELET COUNT 132 10^3/UL (140-415); RED BLOOD COUNT 4.58 10^6/ul (4.70-6.10); RED CELL DISTRIBUTION WIDTH 12.4 % (11.5-14.5)
[2017-11-18 06:09] LABS: ALANINE AMINOTRANSFERASE 50 IU/L (13-69); ALBUMIN 2.7 g/dl (3.3-4.9); ALBUMIN/GLOBULIN RATIO 0.96; ALKALINE PHOSPHATASE 83 IU/L (42-121); ANION GAP 7 (8-16); ASPARTATE AMINO TRANSFERASE 40 IU/L (15-46); BLOOD UREA NITROGEN 12 mg/dl (7-20); CALCIUM 8.3 mg/dl (8.4-10.2); CARBON DIOXIDE 26 mmol/L (21-31); CHLORIDE 110 mmol/L (97-110); CREATININE 0.85 mg/dl (0.61-1.24); GLUCOSE 209 mg/dl (70-220); MAGNESIUM 1.7 mg/dl (1.7-2.5); PHOSPHORUS 3.2 mg/dl (2.5-4.9); POTASSIUM 3.5 mmol/L (3.5-5.1); SODIUM 139 mmol/L (135-144); TOTAL PROTEIN 5.5 g/dl (6.1-8.1)
[2017-11-18] MEDS: DEXTROSE 5% 1,000 ML IV (06:20)
[2017-11-18] MEDS: VANCOMYCIN 1 GM in DEXTROSE 5% 250 ML IVPB ×2 (06:30→16:54)
[2017-11-18] MEDS: ALLOPURINOL 100 MG TAB PO (08:35)
[2017-11-18] MEDS: FAMOTIDINE 20 MG INJ IV (08:38)
[2017-11-18] MEDS: INSULIN GLARGINE [LANTus] (100 UNITS/ML) SYG SC (08:39)
[2017-11-18] MEDS: BALSAM PERU/CASTOR OIL 60 GM TUBE TOP (08:43)
[2017-11-18] MEDS: ENOXAPARIN 40 MG/0.4 ML SYG SC (08:43)
[2017-11-18] MEDS: INSULIN LISPRO 100 UNIT/ML VIAL SC (11:20)
[2017-11-18] MEDS: LIDOCAINE 1% (MPF) 5 ML VIAL SC (16:00)
[2017-11-18] MEDS: POTASSIUM CHLORIDE 100 ML IVPB (17:55)
[2017-11-18] MEDS: CEFTRIAXONE 1 GM/NS 50 ML IVPB (21:24)
[2017-11-19] MEDS: LORAZEPAM 2 MG INJ IV (00:39)
[2017-11-19] MEDS: DEXTROSE 5% 1,000 ML IV (02:20)
[2017-11-19] MEDS: ACCU-CHEK XX (02:42)
[2017-11-19] MEDS: INSULIN ASPART [NOVOLOG] 3 ML PEN SC ×8 (03:17→21:16)
[2017-11-19] MEDS: VANCOMYCIN 1 GM in DEXTROSE 5% 250 ML IVPB ×2 (05:26→17:38)
[2017-11-19 06:37] LABS: ADD MAN DIFF? NO
[2017-11-19 06:48] LABS: WHITE BLOOD COUNT 9.2 10^3/ul (4.8-10.8)
[2017-11-19 06:48] LABS: BASOPHILS % 0.2 % (0.0-2.0); EOSINOPHILS # 0.2 10^3/ul (0.0-0.5); EOSINOPHILS % 1.7 % (0.0-7.0); HEMATOCRIT 39.8 % (42.0-52.0); HEMOGLOBIN 12.7 g/dl (14.0-18.0); LYMPHOCYTES # 3.1 10^3/ul (0.8-2.9); LYMPHOCYTES % 33.1 % (15.0-51.0); MEAN CORPUSCULAR HEMOGLOBIN 26.6 pg (29.0-33.0); MEAN CORPUSCULAR HGB CONC 31.9 g/dl (32.0-37.0); MEAN CORPUSCULAR VOLUME 83.3 fl (82.0-101.0); MEAN PLATELET VOLUME 11.5 fl (7.4-10.4); MONOCYTE # 1.1 10^3/ul (0.3-0.9); NEUTROPHIL # 4.8 10^3/ul (1.6-7.5); NEUTROPHILS % 52.2 % (39.0-77.0); PLATELET COUNT 136 10^3/UL (140-415); RED BLOOD COUNT 4.78 10^6/ul (4.70-6.10); RED CELL DISTRIBUTION WIDTH 12.2 % (11.5-14.5)
[2017-11-19 07:05] LABS: ALANINE AMINOTRANSFERASE 55 IU/L (13-69); ALBUMIN 2.9 g/dl (3.3-4.9); ALBUMIN/GLOBULIN RATIO 0.96; ALKALINE PHOSPHATASE 101 IU/L (42-121); ANION GAP 10 (8-16); ASPARTATE AMINO TRANSFERASE 41 IU/L (15-46); BILIRUBIN,INDIRECT 0.7 mg/dl (0-1.1); BILIRUBIN,TOTAL 0.7 mg/dl (0.2-1.3); BLOOD UREA NITROGEN 16 mg/dl (7-20); CALCIUM 8.7 mg/dl (8.4-10.2); CARBON DIOXIDE 25 mmol/L (21-31); CHLORIDE 110 mmol/L (97-110); CREATININE 1.24 mg/dl (0.61-1.24); GLUCOSE 228 mg/dl (70-220); MAGNESIUM 1.8 mg/dl (1.7-2.5); PHOSPHORUS 3.3 mg/dl (2.5-4.9); POTASSIUM 3.5 mmol/L (3.5-5.1); SODIUM 141 mmol/L (135-144); TOTAL PROTEIN 5.9 g/dl (6.1-8.1)
[2017-11-19] MEDS: FAMOTIDINE 20 MG INJ IV (08:06)
[2017-11-19] MEDS: ALLOPURINOL 100 MG TAB PO (08:06)
[2017-11-19] MEDS: INSULIN GLARGINE [LANTus] (100 UNITS/ML) SYG SC (08:13)
[2017-11-19] MEDS: AMIODARONE 200 MG TAB PO (08:41)
[2017-11-19] MEDS: POTASSIUM CHLORIDE (SR) 20 MEQ TAB PO (08:41)
[2017-11-19] MEDS: APIXABAN 5 MG TABLET PO ×2 (08:41→21:10)
[2017-11-19] MEDS: MAGNESIUM SULFATE 2 GM/50 ML 50 ML IVPB (08:42)
[2017-11-19] MEDS: BALSAM PERU/CASTOR OIL 60 GM TUBE TOP (08:42)
[2017-11-19] MEDS: POTASSIUM CHLORIDE 100 ML IVPB ×2 (10:52→12:58)
[2017-11-19] MEDS ORDERED: ASPIRIN (EC) 325 MG TAB PO (11:30)
[2017-11-19 17:07] LABS: VANCOMYCIN,TROUGH 19.3 ug/ml (10.0-20.0)
[2017-11-19] MEDS: CEFTRIAXONE 1 GM/NS 50 ML IVPB (21:11)
[2017-11-19] MEDS: SENNA/DOCUSATE NA (8.6MG/50MG) TAB PO (21:11)
[2017-11-19] MEDS ORDERED: INSULIN GLARGINE [LANTus] (100 UNITS/ML) SYG SC (23:30)
[2017-11-20] MEDS: ACCU-CHEK XX (02:24)
[2017-11-20 06:53] LABS: ADD MAN DIFF? NO
[2017-11-20 06:56] LABS: WHITE BLOOD COUNT 11.2 10^3/ul (4.8-10.8)
[2017-11-20 06:56] LABS: BASOPHILS % 0.2 % (0.0-2.0); EOSINOPHILS # 0.1 10^3/ul (0.0-0.5); EOSINOPHILS % 1.2 % (0.0-7.0); HEMATOCRIT 36.9 % (42.0-52.0); HEMOGLOBIN 11.7 g/dl (14.0-18.0); LYMPHOCYTES # 3.2 10^3/ul (0.8-2.9); LYMPHOCYTES % 28.6 % (15.0-51.0); MEAN CORPUSCULAR HEMOGLOBIN 26.2 pg (29.0-33.0); MEAN CORPUSCULAR HGB CONC 31.7 g/dl (32.0-37.0); MEAN CORPUSCULAR VOLUME 82.6 fl (82.0-101.0); MEAN PLATELET VOLUME 11.4 fl (7.4-10.4); MONOCYTE # 1.1 10^3/ul (0.3-0.9); NEUTROPHIL # 6.6 10^3/ul (1.6-7.5); NEUTROPHILS % 59.5 % (39.0-77.0); PLATELET COUNT 156 10^3/UL (140-415); RED BLOOD COUNT 4.47 10^6/ul (4.70-6.10); RED CELL DISTRIBUTION WIDTH 12.5 % (11.5-14.5)
[2017-11-20 07:13] LABS: ALANINE AMINOTRANSFERASE 47 IU/L (13-69); ALBUMIN 2.8 g/dl (3.3-4.9); ALKALINE PHOSPHATASE 94 IU/L (42-121); ANION GAP 11 (8-16); ASPARTATE AMINO TRANSFERASE 26 IU/L (15-46); BILIRUBIN,INDIRECT 0.8 mg/dl (0-1.1); BILIRUBIN,TOTAL 0.8 mg/dl (0.2-1.3); BLOOD UREA NITROGEN 15 mg/dl (7-20); CALCIUM 8.6 mg/dl (8.4-10.2); CARBON DIOXIDE 23 mmol/L (21-31); CHLORIDE 108 mmol/L (97-110); CREATININE 1.37 mg/dl (0.61-1.24); GLUCOSE 388 mg/dl (70-220); MAGNESIUM 1.8 mg/dl (1.7-2.5); POTASSIUM 3.6 mmol/L (3.5-5.1); SODIUM 138 mmol/L (135-144); TOTAL PROTEIN 5.9 g/dl (6.1-8.1)
[2017-11-20] MEDS: INSULIN ASPART [NOVOLOG] 3 ML PEN SC ×7 (08:46→22:08)
[2017-11-20] MEDS: INSULIN GLARGINE [LANTus] (100 UNITS/ML) SYG SC (08:46)
[2017-11-20] MEDS: FAMOTIDINE 20 MG INJ IV (08:49)
[2017-11-20] MEDS: ALLOPURINOL 100 MG TAB PO (08:50)
[2017-11-20] MEDS: AMIODARONE 200 MG TAB PO (08:50)
[2017-11-20] MEDS: BALSAM PERU/CASTOR OIL 60 GM TUBE TOP (08:51)
[2017-11-20] MEDS: APIXABAN 5 MG TABLET PO ×2 (08:51→21:54)
[2017-11-20] MEDS: SOD CHLORIDE 0.9% 1,000 ML IV (10:04)
[2017-11-20] MEDS: MAGNESIUM SULFATE 2 GM/50 ML 50 ML IVPB (17:29)
[2017-11-20] MEDS: POTASSIUM CHLORIDE (SR) 20 MEQ TAB PO (17:29)
[2017-11-20] MEDS: VANCOMYCIN 1 GM 250 ML IVPB (17:30)
[2017-11-20] MEDS: LACTOBACILLUS RHAMNOSUS CAP PO (21:54)
[2017-11-20] MEDS: CEFTRIAXONE 1 GM/NS 50 ML IVPB (21:55)
[2017-11-20] MEDS: ATORVASTATIN 10 MG TAB PO (21:55)
[2017-11-21] MEDS: ACCU-CHEK XX (02:43)
[2017-11-21] MEDS: SOD CHLORIDE 0.9% 1,000 ML IV ×3 (02:48→21:19)
[2017-11-21 06:38] LABS: ADD MAN DIFF? NO
[2017-11-21 06:45] LABS: WHITE BLOOD COUNT 10.2 10^3/ul (4.8-10.8)
[2017-11-21 06:45] LABS: BASOPHILS % 0.2 % (0.0-2.0); EOSINOPHILS # 0.2 10^3/ul (0.0-0.5); EOSINOPHILS % 1.7 % (0.0-7.0); HEMOGLOBIN 10.8 g/dl (14.0-18.0); LYMPHOCYTES # 3.4 10^3/ul (0.8-2.9); LYMPHOCYTES % 33.4 % (15.0-51.0); MEAN CORPUSCULAR HEMOGLOBIN 26.6 pg (29.0-33.0); MEAN CORPUSCULAR HGB CONC 31.8 g/dl (32.0-37.0); MEAN CORPUSCULAR VOLUME 83.7 fl (82.0-101.0); MEAN PLATELET VOLUME 11.7 fl (7.4-10.4); MONOCYTE # 0.8 10^3/ul (0.3-0.9); MONOCYTES % 7.7 % (0.0-11.0); NEUTROPHIL # 5.8 10^3/ul (1.6-7.5); NEUTROPHILS % 56.5 % (39.0-77.0); PLATELET COUNT 169 10^3/UL (140-415); RED BLOOD COUNT 4.06 10^6/ul (4.70-6.10); RED CELL DISTRIBUTION WIDTH 12.3 % (11.5-14.5)
[2017-11-21 06:59] LABS: ALANINE AMINOTRANSFERASE 48 IU/L (13-69); ALBUMIN 2.8 g/dl (3.3-4.9); ALBUMIN/GLOBULIN RATIO 0.96; ALKALINE PHOSPHATASE 93 IU/L (42-121); ANION GAP 10 (8-16); ASPARTATE AMINO TRANSFERASE 34 IU/L (15-46); BILIRUBIN,INDIRECT 0.9 mg/dl (0-1.1); BILIRUBIN,TOTAL 0.9 mg/dl (0.2-1.3); BLOOD UREA NITROGEN 17 mg/dl (7-20); CALCIUM 8.6 mg/dl (8.4-10.2); CARBON DIOXIDE 25 mmol/L (21-31); CHLORIDE 111 mmol/L (97-110); CREATININE 1.39 mg/dl (0.61-1.24); GLUCOSE 173 mg/dl (70-220); MAGNESIUM 2.1 mg/dl (1.7-2.5); POTASSIUM 3.5 mmol/L (3.5-5.1); SODIUM 142 mmol/L (135-144); TOTAL PROTEIN 5.7 g/dl (6.1-8.1)
[2017-11-21 07:03] LABS: BLOOD UREA NITROGEN 17 mg/dl (7-20)
[2017-11-21] MEDS: INSULIN ASPART [NOVOLOG] 3 ML PEN SC ×7 (07:51→21:00)
[2017-11-21] MEDS: INSULIN GLARGINE [LANTus] (100 UNITS/ML) SYG SC (07:52)
[2017-11-21] MEDS: AMIODARONE 200 MG TAB PO (09:25)
[2017-11-21] MEDS: BALSAM PERU/CASTOR OIL 60 GM TUBE TOP (09:25)
[2017-11-21] MEDS: LACTOBACILLUS RHAMNOSUS CAP PO ×2 (09:25→21:05)
[2017-11-21] MEDS: APIXABAN 5 MG TABLET PO ×2 (09:25→21:05)
[2017-11-21] MEDS: FAMOTIDINE 20 MG INJ IV (09:25)
[2017-11-21] MEDS: VANCOMYCIN 1 GM 250 ML IVPB (17:26)
[2017-11-21] MEDS: ATORVASTATIN 10 MG TAB PO (21:05)
[2017-11-21] MEDS: CEFTRIAXONE 1 GM/NS 50 ML IVPB (21:05)
[2017-11-22] MEDS: ACCU-CHEK XX (02:00)
[2017-11-22] MEDS: LORAZEPAM 2 MG INJ IV (02:53)
[2017-11-22] MEDS: SOD CHLORIDE 0.9% 1,000 ML IV (05:39)
[2017-11-22 07:18] LABS: ADD MAN DIFF? NO
[2017-11-22 07:23] LABS: WHITE BLOOD COUNT 9.9 10^3/ul (4.8-10.8)
[2017-11-22 07:23] LABS: BASOPHILS % 0.3 % (0.0-2.0); EOSINOPHILS # 0.2 10^3/ul (0.0-0.5); HEMATOCRIT 33.4 % (42.0-52.0); HEMOGLOBIN 10.6 g/dl (14.0-18.0); LYMPHOCYTES # 3.4 10^3/ul (0.8-2.9); LYMPHOCYTES % 34.1 % (15.0-51.0); MEAN CORPUSCULAR HEMOGLOBIN 26.4 pg (29.0-33.0); MEAN CORPUSCULAR HGB CONC 31.7 g/dl (32.0-37.0); MEAN CORPUSCULAR VOLUME 83.3 fl (82.0-101.0); MEAN PLATELET VOLUME 11.5 fl (7.4-10.4); MONOCYTE # 0.7 10^3/ul (0.3-0.9); NEUTROPHIL # 5.6 10^3/ul (1.6-7.5); NEUTROPHILS % 56.2 % (39.0-77.0); PLATELET COUNT 163 10^3/UL (140-415); RED BLOOD COUNT 4.01 10^6/ul (4.70-6.10); RED CELL DISTRIBUTION WIDTH 12.4 % (11.5-14.5)
[2017-11-22 07:55] LABS: ADD UMIC YES; UR ASCORBIC ACID NEGATIVE (NEGATIVE); UR BILIRUBIN (Dip) NEGATIVE (NEGATIVE); UR BLOOD (Dip) NEGATIVE (NEGATIVE); UR CLARITY SLIGHTLY CLOUDY (CLEAR); UR COLOR YELLOW (YELLOW); UR GLUCOSE (Dip) 3+ mg/dL (NEGATIVE); UR KETONES (Dip) NEGATIVE (NEGATIVE); UR LEUKOCYTE ESTERASE (Dip) TRACE Leu/ul (NEGATIVE); UR MUCUS FEW /HPF (NONE SEEN); UR NITRITE (Dip) NEGATIVE (NEGATIVE); UR RBC 1 /HPF (0-5); UR SPECIFIC GRAVITY (Dip) 1.012 (1.003-1.030); UR SQUAMOUS EPITHELIAL CELL FEW /HPF (FEW); UR TOTAL PROTEIN (Dip) NEGATIVE (NEGATIVE); UR UROBILINOGEN (Dip) NEGATIVE (NEGATIVE); UR WBC 6 /HPF (0-5)
[2017-11-22] MEDS: INSULIN ASPART [NOVOLOG] 3 ML PEN SC ×7 (07:55→20:17)
[2017-11-22 08:02] LABS: ALANINE AMINOTRANSFERASE 47 IU/L (13-69); ALBUMIN 2.8 g/dl (3.3-4.9); ALKALINE PHOSPHATASE 90 IU/L (42-121); ANION GAP 8 (8-16); ASPARTATE AMINO TRANSFERASE 33 IU/L (15-46); BILIRUBIN,INDIRECT 0.7 mg/dl (0-1.1); BILIRUBIN,TOTAL 0.7 mg/dl (0.2-1.3); BLOOD UREA NITROGEN 14 mg/dl (7-20); CALCIUM 8.1 mg/dl (8.4-10.2); CARBON DIOXIDE 24 mmol/L (21-31); CHLORIDE 111 mmol/L (97-110); CREATININE 1.28 mg/dl (0.61-1.24); GLUCOSE 149 mg/dl (70-220); PHOSPHORUS 3.8 mg/dl (2.5-4.9); POTASSIUM 3.4 mmol/L (3.5-5.1); SODIUM 140 mmol/L (135-144); TOTAL PROTEIN 5.6 g/dl (6.1-8.1)
[2017-11-22] MEDS: INSULIN GLARGINE [LANTus] (100 UNITS/ML) SYG SC (08:10)
[2017-11-22] MEDS: FAMOTIDINE 20 MG INJ IV (10:10)
[2017-11-22] MEDS: LACTOBACILLUS RHAMNOSUS CAP PO ×2 (10:10→22:20)
[2017-11-22] MEDS: APIXABAN 5 MG TABLET PO ×2 (10:10→22:20)
[2017-11-22] MEDS: AMIODARONE 200 MG TAB PO (10:10)
[2017-11-22] MEDS: BALSAM PERU/CASTOR OIL 60 GM TUBE TOP (10:15)
[2017-11-22 11:24] LABS: ANION GAP 8 (8-16); BLOOD UREA NITROGEN 17 mg/dl (7-20); CALCIUM 8.1 mg/dl (8.4-10.2); CARBON DIOXIDE 22 mmol/L (21-31); CHLORIDE 112 mmol/L (97-110); CREATININE 1.26 mg/dl (0.61-1.24); GLUCOSE 180 mg/dl (70-220); POTASSIUM 3.3 mmol/L (3.5-5.1); SODIUM 139 mmol/L (135-144)
[2017-11-22] MEDS: POTASSIUM CHLORIDE 20 MEQ POWDER FOR ORAL SOLN PO (11:59)
[2017-11-22] MEDS ORDERED: LOPERAMIDE 2 MG CAP PO (15:00)
[2017-11-22] MEDS: VANCOMYCIN 1 GM 250 ML IVPB (16:21)
[2017-11-22] MEDS: ATORVASTATIN 10 MG TAB PO (22:20)
[2017-11-22] MEDS: CEFTRIAXONE 1 GM/NS 50 ML IVPB (22:20)
[2017-11-23] MEDS: ACCU-CHEK XX (02:56)
[2017-11-23 06:09] LABS: ADD MAN DIFF? NO
[2017-11-23 06:17] LABS: WHITE BLOOD COUNT 10.9 10^3/ul (4.8-10.8)
[2017-11-23 06:17] LABS: BASOPHILS % 0.3 % (0.0-2.0); EOSINOPHILS # 0.2 10^3/ul (0.0-0.5); EOSINOPHILS % 1.5 % (0.0-7.0); HEMOGLOBIN 11.1 g/dl (14.0-18.0); MEAN CORPUSCULAR HEMOGLOBIN 26.1 pg (29.0-33.0); MEAN CORPUSCULAR HGB CONC 31.7 g/dl (32.0-37.0); MEAN CORPUSCULAR VOLUME 82.2 fl (82.0-101.0); MEAN PLATELET VOLUME 11.3 fl (7.4-10.4); MONOCYTE # 0.7 10^3/ul (0.3-0.9); MONOCYTES % 6.8 % (0.0-11.0); NEUTROPHIL # 5.9 10^3/ul (1.6-7.5); PLATELET COUNT 200 10^3/UL (140-415); RED BLOOD COUNT 4.26 10^6/ul (4.70-6.10); RED CELL DISTRIBUTION WIDTH 12.4 % (11.5-14.5)
[2017-11-23 06:51] LABS: ANION GAP 12 (8-16); BLOOD UREA NITROGEN 15 mg/dl (7-20); CALCIUM 8.6 mg/dl (8.4-10.2); CARBON DIOXIDE 21 mmol/L (21-31); CHLORIDE 113 mmol/L (97-110); CREATININE 1.37 mg/dl (0.61-1.24); GLUCOSE 98 mg/dl (70-220); POTASSIUM 3.5 mmol/L (3.5-5.1); SODIUM 142 mmol/L (135-144)
[2017-11-23] MEDS: INSULIN ASPART [NOVOLOG] 3 ML PEN SC ×7 (07:55→20:17)
[2017-11-23] MEDS: AMIODARONE 200 MG TAB PO (08:22)
[2017-11-23] MEDS: APIXABAN 5 MG TABLET PO ×2 (08:23→20:14)
[2017-11-23] MEDS: POTASSIUM CHLORIDE 20 MEQ POWDER FOR ORAL SOLN PO (08:23)
[2017-11-23] MEDS: FAMOTIDINE 20 MG TAB PO (08:23)
[2017-11-23] MEDS: BALSAM PERU/CASTOR OIL 60 GM TUBE TOP (08:24)
[2017-11-23] MEDS: LACTOBACILLUS RHAMNOSUS CAP PO (08:24)
[2017-11-23] MEDS: INSULIN GLARGINE [LANTus] (100 UNITS/ML) SYG SC (08:25)
[2017-11-23] MEDS ORDERED: ALLOPURINOL 100 MG TAB PO (09:30)
[2017-11-23 17:31] LABS: VANCOMYCIN,TROUGH 12.8 ug/ml (10.0-20.0)
[2017-11-23] MEDS: VANCOMYCIN 1 GM 250 ML IVPB (18:08)
[2017-11-23] MEDS: POTASSIUM CHLORIDE (SR) 20 MEQ TAB PO (18:08)
[2017-11-23] MEDS: ATORVASTATIN 10 MG TAB PO (20:14)
[2017-12-06 14:04] LABS: PROCALCITONIN 0.12 ng/mL (<0.10)
[2017-12-06 14:05] LABS: PROCALCITONIN <0.10 ng/mL (<0.10)
== END 2017-11-23 21:52 | DRG 871 ==
LOC: TEL 11-14 17:47 → ICU 11-13 17:14 → E/R 13:12 → ICU 17:17
PROC: 02HV33Z Insertion of Infusion Device into Superior Vena Cava, Percutaneous Approach (ICD-10-PCS; principal; 2017-11-11)
PROC: 0BH17EZ Insertion of Endotracheal Airway into Trachea, Via Natural or Artificial Opening (ICD-10-PCS; 2017-11-11)
PROC: 5A1945Z Respiratory Ventilation, 24-96 Consecutive Hours (ICD-10-PCS; 2017-11-11)
PROC: 02HV33Z Insertion of Infusion Device into Superior Vena Cava, Percutaneous Approach (ICD-10-PCS; 2017-11-18)
DX: A41.59 Other Gram-negative sepsis (principal); E11.10 Type 2 diabetes mellitus with ketoacidosis without coma; J96.01 Acute respiratory failure with hypoxia; I62.03 Nontraumatic chronic subdural hemorrhage; I63.9 Cerebral infarction, unspecified; G93.41 Metabolic encephalopathy; E87.2 Acidosis; N17.9 Acute kidney failure, unspecified; M62.82 Rhabdomyolysis; E87.0 Hyperosmolality and hypernatremia; D68.69 Other thrombophilia; N30.00 Acute cystitis without hematuria; I16.0 Hypertensive urgency; I25.2 Old myocardial infarction; I10 Essential (primary) hypertension; N40.0 Benign prostatic hyperplasia without lower urinary tract symptoms; E87.5 Hyperkalemia; E78.5 Hyperlipidemia, unspecified; E83.39 Other disorders of phosphorus metabolism; E79.0 Hyperuricemia without signs of inflammatory arthritis and tophaceous disease; I48.0 Paroxysmal atrial fibrillation; E86.0 Dehydration; D69.6 Thrombocytopenia, unspecified; R13.10 Dysphagia, unspecified; I65.22 Occlusion and stenosis of left carotid artery; R62.7 Adult failure to thrive; R40.2432 Glasgow coma scale score 3-8, at arrival to emergency department; R19.7 Diarrhea, unspecified
CPT/HCPCS: 31500; 36415; 36569; 36600; 70450; 70551; 71045; 71250; 72170; 74176; 74230; 76775; 76937; 80048; 80053; 80061; 80069; 80202; 80307; 81001; 82550; 82565; 82607; 82746; 82803; 82962; 83036; 83605; 83690; 83735; 83880; 84100; 84145; 84300; 84443; 84484; 84520; 84560; 85025; 85610; 85730; 86592; 86850; 86900; 86901; 87040; 87075; 87081; 87086; 89190; 92526; 92610; 92611; 93005; 93306; 93880; 94002; 94003; 94770; 96365; 96368; 97110; 97116; 97162; 97165; 97530; 99291-25

== ENCOUNTER 2017-11-23 22:00 | Inpatient (IN) | payer MEDICARE ==
[2017-11-24 01:09] LABS: ADD UMIC NO; UR ASCORBIC ACID NEGATIVE (NEGATIVE); UR BILIRUBIN (Dip) NEGATIVE (NEGATIVE); UR BLOOD (Dip) NEGATIVE (NEGATIVE); UR CLARITY CLEAR (CLEAR); UR COLOR STRAW (YELLOW); UR GLUCOSE (Dip) NEGATIVE (NEGATIVE); UR KETONES (Dip) NEGATIVE (NEGATIVE); UR LEUKOCYTE ESTERASE (Dip) NEGATIVE Leu/ul (NEGATIVE); UR NITRITE (Dip) NEGATIVE (NEGATIVE); UR SPECIFIC GRAVITY (Dip) 1.008 (1.003-1.030); UR TOTAL PROTEIN (Dip) NEGATIVE (NEGATIVE); UR UROBILINOGEN (Dip) NEGATIVE (NEGATIVE)
[2017-11-24] MEDS ORDERED: DOCUSATE SODIUM 100 MG CAP PO (01:46)
[2017-11-24] MEDS ORDERED: GLUCOSE GEL 15 GRAM TUBE BUCCAL (01:46)
[2017-11-24] MEDS ORDERED: BISACODYL (EC) 5 MG TAB PO (01:46)
[2017-11-24] MEDS ORDERED: HYDROCODONE/APAP (5/325) TAB PO (01:46)
[2017-11-24] MEDS ORDERED: MAGNESIUM HYDROXIDE 30ML CUP PO (01:46)
[2017-11-24] MEDS ORDERED: GLUCAGON 1 MG INJ IM (01:46)
[2017-11-24] MEDS ORDERED: GLUCOSE GEL 15 GRAM TUBE PO ×2 (01:46)
[2017-11-24] MEDS ORDERED: morphine 2 MG INJ IV (01:46)
[2017-11-24] MEDS: ACCU-CHEK XX (02:00)
[2017-11-24] MEDS ORDERED: PENDING SANTYL ORDER FOR WOUND CARE XX (04:00)
[2017-11-24 06:38] LABS: ADD MAN DIFF? NO
[2017-11-24 06:49] LABS: WHITE BLOOD COUNT 10.2 10^3/ul (4.8-10.8)
[2017-11-24 06:49] LABS: BASOPHIL # 0.1 10^3/ul (0.0-0.1); BASOPHILS % 0.5 % (0.0-2.0); EOSINOPHILS # 0.1 10^3/ul (0.0-0.5); EOSINOPHILS % 1.3 % (0.0-7.0); HEMATOCRIT 36.3 % (42.0-52.0); HEMOGLOBIN 11.6 g/dl (14.0-18.0); LYMPHOCYTES # 3.7 10^3/ul (0.8-2.9); MEAN CORPUSCULAR HEMOGLOBIN 26.8 pg (29.0-33.0); MEAN CORPUSCULAR VOLUME 83.8 fl (82.0-101.0); MEAN PLATELET VOLUME 11.1 fl (7.4-10.4); MONOCYTE # 0.9 10^3/ul (0.3-0.9); MONOCYTES % 8.3 % (0.0-11.0); NEUTROPHIL # 5.5 10^3/ul (1.6-7.5); NEUTROPHILS % 53.4 % (39.0-77.0); PLATELET COUNT 210 10^3/UL (140-415); RED BLOOD COUNT 4.33 10^6/ul (4.70-6.10); RED CELL DISTRIBUTION WIDTH 12.4 % (11.5-14.5)
[2017-11-24 07:11] LABS: ALANINE AMINOTRANSFERASE 35 IU/L (13-69); ALBUMIN 3.1 g/dl (3.3-4.9); ALBUMIN/GLOBULIN RATIO 0.96; ALKALINE PHOSPHATASE 90 IU/L (42-121); ANION GAP 11 (8-16); ASPARTATE AMINO TRANSFERASE 24 IU/L (15-46); BILIRUBIN,INDIRECT 0.8 mg/dl (0-1.1); BILIRUBIN,TOTAL 0.8 mg/dl (0.2-1.3); BLOOD UREA NITROGEN 13 mg/dl (7-20); CALCIUM 8.8 mg/dl (8.4-10.2); CARBON DIOXIDE 22 mmol/L (21-31); CHLORIDE 113 mmol/L (97-110); CREATININE 1.43 mg/dl (0.61-1.24); GLUCOSE 87 mg/dl (70-220); POTASSIUM 3.6 mmol/L (3.5-5.1); SODIUM 142 mmol/L (135-144); TOTAL PROTEIN 6.3 g/dl (6.1-8.1)
[2017-11-24] MEDS: INSULIN ASPART [NOVOLOG] 3 ML PEN SC ×7 (07:35→21:31)
[2017-11-24] MEDS: INSULIN GLARGINE [LANTus] (100 UNITS/ML) SYG SC (09:05)
[2017-11-24] MEDS: FAMOTIDINE 20 MG TAB PO (09:06)
[2017-11-24] MEDS: BALSAM PERU/CASTOR OIL 60 GM TUBE TOP (09:06)
[2017-11-24] MEDS: AMIODARONE 200 MG TAB PO (09:07)
[2017-11-24] MEDS: APIXABAN 5 MG TABLET PO ×2 (09:07→21:21)
[2017-11-24] MEDS: LACTOBACILLUS RHAMNOSUS CAP PO ×2 (09:07→21:21)
[2017-11-24 10:50] LABS: ADD MAN DIFF? NO
[2017-11-24 10:53] LABS: BASOPHIL # 0.1 10^3/ul (0.0-0.1); BASOPHILS % 0.5 % (0.0-2.0); EOSINOPHILS # 0.1 10^3/ul (0.0-0.5); EOSINOPHILS % 1.1 % (0.0-7.0); HEMATOCRIT 32.9 % (42.0-52.0); HEMOGLOBIN 10.5 g/dl (14.0-18.0); LYMPHOCYTES % 30.3 % (15.0-51.0); MEAN CORPUSCULAR HEMOGLOBIN 26.6 pg (29.0-33.0); MEAN CORPUSCULAR HGB CONC 31.9 g/dl (32.0-37.0); MEAN CORPUSCULAR VOLUME 83.5 fl (82.0-101.0); MEAN PLATELET VOLUME 11.4 fl (7.4-10.4); MONOCYTE # 0.8 10^3/ul (0.3-0.9); MONOCYTES % 8.3 % (0.0-11.0); NEUTROPHIL # 5.9 10^3/ul (1.6-7.5); NEUTROPHILS % 59.4 % (39.0-77.0); PLATELET COUNT 196 10^3/UL (140-415); RED BLOOD COUNT 3.94 10^6/ul (4.70-6.10); RED CELL DISTRIBUTION WIDTH 12.4 % (11.5-14.5)
[2017-11-24] MEDS: POTASSIUM CHLORIDE (SR) 10 MEQ TAB PO (11:00)
[2017-11-24 11:42] LABS: ALANINE AMINOTRANSFERASE 35 IU/L (13-69); ALBUMIN/GLOBULIN RATIO 0.93; ALKALINE PHOSPHATASE 90 IU/L (42-121); ANION GAP 13 (8-16); ASPARTATE AMINO TRANSFERASE 34 IU/L (15-46); BILIRUBIN,INDIRECT 0.9 mg/dl (0-1.1); BILIRUBIN,TOTAL 0.9 mg/dl (0.2-1.3); BLOOD UREA NITROGEN 14 mg/dl (7-20); CALCIUM 8.7 mg/dl (8.4-10.2); CARBON DIOXIDE 22 mmol/L (21-31); CHLORIDE 109 mmol/L (97-110); CREATININE 1.65 mg/dl (0.61-1.24); GLUCOSE 218 mg/dl (70-220); POTASSIUM 3.6 mmol/L (3.5-5.1); SODIUM 140 mmol/L (135-144); TOTAL PROTEIN 6.2 g/dl (6.1-8.1)
[2017-11-24] MEDS: ATORVASTATIN 10 MG TAB PO (21:21)
[2017-11-24] MEDS: NYSTATIN 30 GM POWDER BTL TOP (21:22)
[2017-11-25] MEDS: ZOLPIDEM 5 MG TAB PO ×2 (00:34→22:25)
[2017-11-25] MEDS: ACCU-CHEK XX (02:45)
[2017-11-25 06:56] LABS: ADD MAN DIFF? NO
[2017-11-25 07:03] LABS: BASOPHIL # 0.1 10^3/ul (0.0-0.1); BASOPHILS % 0.6 % (0.0-2.0); EOSINOPHILS # 0.2 10^3/ul (0.0-0.5); EOSINOPHILS % 1.7 % (0.0-7.0); HEMATOCRIT 36.1 % (42.0-52.0); HEMOGLOBIN 11.2 g/dl (14.0-18.0); LYMPHOCYTES # 3.9 10^3/ul (0.8-2.9); MEAN CORPUSCULAR HEMOGLOBIN 25.9 pg (29.0-33.0); MEAN CORPUSCULAR VOLUME 83.4 fl (82.0-101.0); MEAN PLATELET VOLUME 11.1 fl (7.4-10.4); MONOCYTE # 0.9 10^3/ul (0.3-0.9); NEUTROPHILS % 49.3 % (39.0-77.0); PLATELET COUNT 227 10^3/UL (140-415); RED BLOOD COUNT 4.33 10^6/ul (4.70-6.10); RED CELL DISTRIBUTION WIDTH 12.7 % (11.5-14.5)
[2017-11-25 07:03] LABS: WHITE BLOOD COUNT 10.1 10^3/ul (4.8-10.8)
[2017-11-25 07:21] LABS: ALANINE AMINOTRANSFERASE 32 IU/L (13-69); ALBUMIN 3.3 g/dl (3.3-4.9); ALBUMIN/GLOBULIN RATIO 0.97; ALKALINE PHOSPHATASE 94 IU/L (42-121); ANION GAP 10 (8-16); ASPARTATE AMINO TRANSFERASE 25 IU/L (15-46); BILIRUBIN,INDIRECT 0.8 mg/dl (0-1.1); BILIRUBIN,TOTAL 0.8 mg/dl (0.2-1.3); BLOOD UREA NITROGEN 17 mg/dl (7-20); CALCIUM 9.1 mg/dl (8.4-10.2); CARBON DIOXIDE 27 mmol/L (21-31); CHLORIDE 107 mmol/L (97-110); CREATININE 1.68 mg/dl (0.61-1.24); GLUCOSE 143 mg/dl (70-220); POTASSIUM 3.9 mmol/L (3.5-5.1); SODIUM 140 mmol/L (135-144); TOTAL PROTEIN 6.7 g/dl (6.1-8.1)
[2017-11-25] MEDS: INSULIN ASPART [NOVOLOG] 3 ML PEN SC ×7 (07:53→22:03)
[2017-11-25] MEDS: INSULIN GLARGINE [LANTus] (100 UNITS/ML) SYG SC (07:55)
[2017-11-25] MEDS: BALSAM PERU/CASTOR OIL 60 GM TUBE TOP (10:01)
[2017-11-25] MEDS: APIXABAN 5 MG TABLET PO ×2 (10:01→21:54)
[2017-11-25] MEDS: FAMOTIDINE 20 MG TAB PO (10:01)
[2017-11-25] MEDS: AMIODARONE 200 MG TAB PO (10:02)
[2017-11-25] MEDS: LACTOBACILLUS RHAMNOSUS CAP PO ×2 (10:02→21:54)
[2017-11-25] MEDS: NYSTATIN 30 GM POWDER BTL TOP ×2 (10:03→21:56)
[2017-11-25] MEDS: ATORVASTATIN 10 MG TAB PO (21:54)
[2017-11-26] MEDS: ACCU-CHEK XX (02:48)
[2017-11-26] MEDS: ACETAMINOPHEN 325 MG TAB PO ×2 (06:29→23:09)
[2017-11-26] MEDS: INSULIN ASPART [NOVOLOG] 3 ML PEN SC ×7 (08:03→21:00)
[2017-11-26] MEDS: FAMOTIDINE 20 MG TAB PO (08:07)
[2017-11-26] MEDS: LACTOBACILLUS RHAMNOSUS CAP PO ×2 (08:08→21:11)
[2017-11-26] MEDS: APIXABAN 5 MG TABLET PO ×2 (08:08→21:12)
[2017-11-26] MEDS: NYSTATIN 30 GM POWDER BTL TOP ×2 (08:38→21:12)
[2017-11-26] MEDS: AMIODARONE 200 MG TAB PO (08:39)
[2017-11-26] MEDS: BALSAM PERU/CASTOR OIL 60 GM TUBE TOP ×2 (09:00)
[2017-11-26] MEDS: INSULIN GLARGINE [LANTus] (100 UNITS/ML) SYG SC (10:07)
[2017-11-26] MEDS: ATORVASTATIN 10 MG TAB PO (21:11)
[2017-11-26] MEDS: LORAZEPAM 0.5 MG TAB PO (23:08)
[2017-11-27] MEDS: ACCU-CHEK XX (02:00)
[2017-11-27] MEDS: INSULIN ASPART [NOVOLOG] 3 ML PEN SC ×8 (07:39→21:58)
[2017-11-27] MEDS: INSULIN GLARGINE [LANTus] (100 UNITS/ML) SYG SC (07:40)
[2017-11-27] MEDS: AMIODARONE 200 MG TAB PO (08:59)
[2017-11-27] MEDS: APIXABAN 5 MG TABLET PO ×2 (08:59→20:32)
[2017-11-27] MEDS: FAMOTIDINE 20 MG TAB PO (08:59)
[2017-11-27] MEDS: LACTOBACILLUS RHAMNOSUS CAP PO ×2 (08:59→20:32)
[2017-11-27] MEDS: NYSTATIN 30 GM POWDER BTL TOP ×2 (09:00→20:33)
[2017-11-27] MEDS: ATORVASTATIN 10 MG TAB PO (20:32)
[2017-11-27] MEDS: ZOLPIDEM 5 MG TAB PO (20:40)
[2017-11-28] MEDS: LORAZEPAM 0.5 MG TAB PO (00:39)
[2017-11-28] MEDS: ACCU-CHEK XX (02:00)
[2017-11-28] MEDS: INSULIN ASPART [NOVOLOG] 3 ML PEN SC ×7 (08:16→21:02)
[2017-11-28] MEDS: INSULIN GLARGINE [LANTus] (100 UNITS/ML) SYG SC (08:20)
[2017-11-28] MEDS: LACTOBACILLUS RHAMNOSUS CAP PO ×2 (09:30→20:52)
[2017-11-28] MEDS: APIXABAN 5 MG TABLET PO ×2 (09:30→20:52)
[2017-11-28] MEDS: FAMOTIDINE 20 MG TAB PO (09:31)
[2017-11-28] MEDS: NYSTATIN 30 GM POWDER BTL TOP ×2 (09:31→21:04)
[2017-11-28] MEDS: AMIODARONE 200 MG TAB PO (09:31)
[2017-11-28] MEDS: ATORVASTATIN 10 MG TAB PO (20:52)
[2017-11-28] MEDS: ZOLPIDEM 5 MG TAB PO (21:54)
[2017-11-29] MEDS: ACCU-CHEK XX (02:48)
[2017-11-29] MEDS: LORAZEPAM 0.5 MG TAB PO ×2 (03:40→19:56)
[2017-11-29] MEDS: INSULIN ASPART [NOVOLOG] 3 ML PEN SC ×7 (08:24→20:00)
[2017-11-29] MEDS: INSULIN GLARGINE [LANTus] (100 UNITS/ML) SYG SC (08:27)
[2017-11-29] MEDS: APIXABAN 5 MG TABLET PO ×2 (10:10→20:01)
[2017-11-29] MEDS: FAMOTIDINE 20 MG TAB PO (10:10)
[2017-11-29] MEDS: LACTOBACILLUS RHAMNOSUS CAP PO ×2 (10:11→20:02)
[2017-11-29] MEDS: AMIODARONE 200 MG TAB PO (10:11)
[2017-11-29] MEDS: NYSTATIN 30 GM POWDER BTL TOP ×2 (10:11→20:07)
[2017-11-29] MEDS: ATORVASTATIN 10 MG TAB PO (20:00)
[2017-11-29] MEDS: ZOLPIDEM 5 MG TAB PO (23:36)
[2017-11-30] MEDS: ACCU-CHEK XX (02:00)
[2017-11-30] MEDS: INSULIN ASPART [NOVOLOG] 3 ML PEN SC ×7 (07:35→21:44)
[2017-11-30 07:37] LABS: ADD MAN DIFF? NO
[2017-11-30 07:43] LABS: BASOPHIL # 0.1 10^3/ul (0.0-0.1); BASOPHILS % 0.8 % (0.0-2.0); EOSINOPHILS # 0.1 10^3/ul (0.0-0.5); EOSINOPHILS % 1.7 % (0.0-7.0); HEMATOCRIT 34.6 % (42.0-52.0); HEMOGLOBIN 10.9 g/dl (14.0-18.0); LYMPHOCYTES # 3.3 10^3/ul (0.8-2.9); LYMPHOCYTES % 38.8 % (15.0-51.0); MEAN CORPUSCULAR HEMOGLOBIN 26.8 pg (29.0-33.0); MEAN CORPUSCULAR HGB CONC 31.5 g/dl (32.0-37.0); MEAN CORPUSCULAR VOLUME 85.2 fl (82.0-101.0); MEAN PLATELET VOLUME 11.4 fl (7.4-10.4); MONOCYTE # 0.8 10^3/ul (0.3-0.9); MONOCYTES % 9.1 % (0.0-11.0); NEUTROPHIL # 4.2 10^3/ul (1.6-7.5); NEUTROPHILS % 49.5 % (39.0-77.0); PLATELET COUNT 226 10^3/UL (140-415); RED BLOOD COUNT 4.06 10^6/ul (4.70-6.10); RED CELL DISTRIBUTION WIDTH 12.8 % (11.5-14.5)
[2017-11-30 07:43] LABS: WHITE BLOOD COUNT 8.5 10^3/ul (4.8-10.8)
[2017-11-30 08:01] LABS: ALANINE AMINOTRANSFERASE 32 IU/L (13-69); ALBUMIN 3.3 g/dl (3.3-4.9); ALBUMIN/GLOBULIN RATIO 1.06; ALKALINE PHOSPHATASE 84 IU/L (42-121); ANION GAP 11 (8-16); ASPARTATE AMINO TRANSFERASE 27 IU/L (15-46); BLOOD UREA NITROGEN 22 mg/dl (7-20); CALCIUM 9.1 mg/dl (8.4-10.2); CARBON DIOXIDE 27 mmol/L (21-31); CHLORIDE 107 mmol/L (97-110); CREATININE 1.57 mg/dl (0.61-1.24); GLUCOSE 137 mg/dl (70-220); MAGNESIUM 1.7 mg/dl (1.7-2.5); POTASSIUM 3.9 mmol/L (3.5-5.1); SODIUM 141 mmol/L (135-144); TOTAL PROTEIN 6.4 g/dl (6.1-8.1)
[2017-11-30] MEDS: APIXABAN 5 MG TABLET PO ×2 (08:29→21:33)
[2017-11-30] MEDS: LACTOBACILLUS RHAMNOSUS CAP PO ×2 (08:29→21:33)
[2017-11-30] MEDS: FAMOTIDINE 20 MG TAB PO (08:29)
[2017-11-30] MEDS: AMIODARONE 200 MG TAB PO (08:30)
[2017-11-30] MEDS: NYSTATIN 30 GM POWDER BTL TOP ×2 (08:30→21:34)
[2017-11-30] MEDS: INSULIN GLARGINE [LANTus] (100 UNITS/ML) SYG SC (08:34)
[2017-11-30] MEDS: MAGNESIUM SULFATE 3 GM in DEXTROSE 5% 100 ML IVPB (19:01)
[2017-11-30] MEDS: ATORVASTATIN 10 MG TAB PO (21:33)
[2017-11-30] MEDS: ZOLPIDEM 5 MG TAB PO (21:46)
[2017-12-01] MEDS: ACCU-CHEK XX (02:30)
[2017-12-01] MEDS: APIXABAN 5 MG TABLET PO ×2 (08:02→21:15)
[2017-12-01] MEDS: FAMOTIDINE 20 MG TAB PO (08:02)
[2017-12-01] MEDS: LACTOBACILLUS RHAMNOSUS CAP PO ×2 (08:03→21:15)
[2017-12-01] MEDS: INSULIN ASPART [NOVOLOG] 3 ML PEN SC ×7 (08:04→21:00)
[2017-12-01] MEDS: INSULIN GLARGINE [LANTus] (100 UNITS/ML) SYG SC (08:05)
[2017-12-01] MEDS: NYSTATIN 30 GM POWDER BTL TOP ×2 (08:14→21:23)
[2017-12-01] MEDS: AMIODARONE 200 MG TAB PO (09:15)
[2017-12-01] MEDS: LORAZEPAM 0.5 MG TAB PO ×2 (12:46→21:15)
[2017-12-01] MEDS: MAGNESIUM CHLORIDE (SR) 64 MG TAB PO (17:21)
[2017-12-01] MEDS: ATORVASTATIN 10 MG TAB PO (21:15)
[2017-12-01] MEDS: ZOLPIDEM 5 MG TAB PO (22:27)
[2017-12-02] MEDS: ACCU-CHEK XX (02:00)
[2017-12-02] MEDS: INSULIN ASPART [NOVOLOG] 3 ML PEN SC ×7 (07:35→21:00)
[2017-12-02] MEDS: NYSTATIN 30 GM POWDER BTL TOP ×2 (09:00→21:05)
[2017-12-02] MEDS: MAGNESIUM CHLORIDE (SR) 64 MG TAB PO (09:05)
[2017-12-02] MEDS: FAMOTIDINE 20 MG TAB PO (09:05)
[2017-12-02] MEDS: LACTOBACILLUS RHAMNOSUS CAP PO ×2 (09:05→21:00)
[2017-12-02] MEDS: AMIODARONE 200 MG TAB PO (09:08)
[2017-12-02] MEDS: APIXABAN 5 MG TABLET PO ×2 (09:09→21:00)
[2017-12-02] MEDS: INSULIN GLARGINE [LANTus] (100 UNITS/ML) SYG SC (09:09)
[2017-12-02] MEDS: ATORVASTATIN 10 MG TAB PO (21:00)
[2017-12-02] MEDS: ZOLPIDEM 5 MG TAB PO (21:00)
[2017-12-03] MEDS: LORAZEPAM 0.5 MG TAB PO (00:07)
[2017-12-03] MEDS: ACCU-CHEK XX (02:00)
[2017-12-03] MEDS: INSULIN ASPART [NOVOLOG] 3 ML PEN SC ×7 (07:35→22:14)
[2017-12-03] MEDS: INSULIN GLARGINE [LANTus] (100 UNITS/ML) SYG SC (07:53)
[2017-12-03] MEDS: FAMOTIDINE 20 MG TAB PO (09:37)
[2017-12-03] MEDS: MAGNESIUM CHLORIDE (SR) 64 MG TAB PO (09:37)
[2017-12-03] MEDS: APIXABAN 5 MG TABLET PO ×2 (09:38→20:45)
[2017-12-03] MEDS: FOLIC ACID 0.4 MG TAB PO (09:38)
[2017-12-03] MEDS: LACTOBACILLUS RHAMNOSUS CAP PO ×2 (09:38→20:45)
[2017-12-03] MEDS: ASCORBIC ACID 500 MG TAB PO (09:38)
[2017-12-03] MEDS: AMIODARONE 200 MG TAB PO (09:39)
[2017-12-03] MEDS: NYSTATIN 30 GM POWDER BTL TOP ×2 (09:54→20:46)
[2017-12-03] MEDS: ATORVASTATIN 10 MG TAB PO (20:45)
[2017-12-03] MEDS: ZOLPIDEM 5 MG TAB PO (20:55)
[2017-12-04] MEDS: ACCU-CHEK XX (02:00)
[2017-12-04 06:39] LABS: ADD MAN DIFF? NO
[2017-12-04 06:41] LABS: WHITE BLOOD COUNT 6.2 10^3/ul (4.8-10.8)
[2017-12-04 06:41] LABS: BASOPHILS % 0.6 % (0.0-2.0); EOSINOPHILS # 0.1 10^3/ul (0.0-0.5); EOSINOPHILS % 1.6 % (0.0-7.0); HEMATOCRIT 34.6 % (42.0-52.0); HEMOGLOBIN 10.9 g/dl (14.0-18.0); LYMPHOCYTES # 2.7 10^3/ul (0.8-2.9); LYMPHOCYTES % 43.4 % (15.0-51.0); MEAN CORPUSCULAR HEMOGLOBIN 26.8 pg (29.0-33.0); MEAN CORPUSCULAR HGB CONC 31.5 g/dl (32.0-37.0); MEAN PLATELET VOLUME 11.1 fl (7.4-10.4); MONOCYTE # 0.7 10^3/ul (0.3-0.9); MONOCYTES % 11.5 % (0.0-11.0); NEUTROPHIL # 2.7 10^3/ul (1.6-7.5); NEUTROPHILS % 42.7 % (39.0-77.0); PLATELET COUNT 191 10^3/UL (140-415); RED BLOOD COUNT 4.07 10^6/ul (4.70-6.10); RED CELL DISTRIBUTION WIDTH 13.2 % (11.5-14.5)
[2017-12-04 07:15] LABS: ALANINE AMINOTRANSFERASE 26 IU/L (13-69); ALBUMIN 3.1 g/dl (3.3-4.9); ALBUMIN/GLOBULIN RATIO 1.06; ALKALINE PHOSPHATASE 71 IU/L (42-121); ANION GAP 11 (8-16); ASPARTATE AMINO TRANSFERASE 18 IU/L (15-46); BILIRUBIN,INDIRECT 0.6 mg/dl (0-1.1); BILIRUBIN,TOTAL 0.6 mg/dl (0.2-1.3); BLOOD UREA NITROGEN 23 mg/dl (7-20); CALCIUM 8.8 mg/dl (8.4-10.2); CARBON DIOXIDE 23 mmol/L (21-31); CHLORIDE 109 mmol/L (97-110); CREATININE 1.67 mg/dl (0.61-1.24); GLUCOSE 266 mg/dl (70-220); MAGNESIUM 1.8 mg/dl (1.7-2.5); SODIUM 139 mmol/L (135-144)
[2017-12-04] MEDS: NYSTATIN 30 GM POWDER BTL TOP ×2 (08:34→20:59)
[2017-12-04] MEDS: APIXABAN 5 MG TABLET PO ×2 (08:35→20:52)
[2017-12-04] MEDS: LACTOBACILLUS RHAMNOSUS CAP PO ×2 (08:35→20:52)
[2017-12-04] MEDS: AMIODARONE 200 MG TAB PO (08:36)
[2017-12-04] MEDS: FAMOTIDINE 20 MG TAB PO (08:36)
[2017-12-04] MEDS: FOLIC ACID 0.4 MG TAB PO (08:36)
[2017-12-04] MEDS: MAGNESIUM CHLORIDE (SR) 64 MG TAB PO (08:36)
[2017-12-04] MEDS: ASCORBIC ACID 500 MG TAB PO (08:36)
[2017-12-04] MEDS: INSULIN GLARGINE [LANTus] (100 UNITS/ML) SYG SC (08:38)
[2017-12-04] MEDS: INSULIN ASPART [NOVOLOG] 3 ML PEN SC ×7 (08:38→21:03)
[2017-12-04] MEDS: LORAZEPAM 0.5 MG TAB PO ×2 (10:51→20:52)
[2017-12-04] MEDS: MAGNESIUM SULFATE 3 GM in DEXTROSE 5% 100 ML IVPB (16:12)
[2017-12-04 19:45] LABS: SODIUM,URINE RANDOM 88 mmol/L (30-90)
[2017-12-04 19:46] LABS: CREATININE,URINE RANDOM 95.42 mg/dl (20-370)
[2017-12-04] MEDS: ATORVASTATIN 10 MG TAB PO (20:52)
[2017-12-04] MEDS: ACETAMINOPHEN 325 MG TAB PO (20:53)
[2017-12-05] MEDS: ACCU-CHEK XX (02:38)
[2017-12-05 06:56] LABS: HEMATOCRIT 33.1 % (42.0-52.0); HEMOGLOBIN 10.4 g/dl (14.0-18.0); IMMATURE GRANS #M 0.01 10^3/ul; IMMATURE GRANS % (M) 0.2 %; MEAN CORPUSCULAR HEMOGLOBIN 26.4 pg (29.0-33.0); MEAN CORPUSCULAR HGB CONC 31.4 g/dl (32.0-37.0); MEAN PLATELET VOLUME 11.5 fl (7.4-10.4); PLATELET COUNT 185 10^3/UL (140-415); RED BLOOD COUNT 3.94 10^6/ul (4.70-6.10); RED CELL DISTRIBUTION WIDTH 13.5 % (11.5-14.5)
[2017-12-05 06:56] LABS: WHITE BLOOD COUNT 6.7 10^3/ul (4.8-10.8)
[2017-12-05 07:02] LABS: ADD MAN DIFF? YES
[2017-12-05 07:16] LABS: MAGNESIUM 1.7 mg/dl (1.7-2.5)
[2017-12-05 07:16] LABS: ALANINE AMINOTRANSFERASE 26 IU/L (13-69); ALBUMIN 3.1 g/dl (3.3-4.9); ALBUMIN/GLOBULIN RATIO 1.14; ALKALINE PHOSPHATASE 67 IU/L (42-121); ANION GAP 11 (8-16); ASPARTATE AMINO TRANSFERASE 17 IU/L (15-46); BILIRUBIN,INDIRECT 0.6 mg/dl (0-1.1); BILIRUBIN,TOTAL 0.6 mg/dl (0.2-1.3); BLOOD UREA NITROGEN 27 mg/dl (7-20); CARBON DIOXIDE 23 mmol/L (21-31); CHLORIDE 110 mmol/L (97-110); CREATININE 1.47 mg/dl (0.61-1.24); GLUCOSE 113 mg/dl (70-220); POTASSIUM 3.9 mmol/L (3.5-5.1); SODIUM 140 mmol/L (135-144); TOTAL PROTEIN 5.8 g/dl (6.1-8.1)
[2017-12-05 07:21] LABS: CREATINE KINASE < 20 IU/L (23-200)
[2017-12-05] MEDS: INSULIN ASPART [NOVOLOG] 3 ML PEN SC ×7 (07:35→21:06)
[2017-12-05 07:43] LABS: ANISOCYTOSIS 1+ (0-0); EOSINOPHILS % (M) 1 % (0-7); LYMPHOCYTES #M 3.1 10^3/ul (0.8-2.9); LYMPHOCYTES % (M) 47 % (15-51); MONOCYTE #M 0.7 10^3/ul (0.3-0.9); MONOCYTES % (M) 11 % (0-11); PLATELET ESTIMATE NORMAL; REACTIVE LYMPHOCYTES #M 0.2 10^3/ul (0.0-0.0); REACTIVE LYMPHOCYTES% (M) 4 % (0-0); SEGMENTED NEUTROPHILS (M) % 37 % (39-77); SMUDGE%M 21 % (0-0)
[2017-12-05] MEDS: INSULIN GLARGINE [LANTus] (100 UNITS/ML) SYG SC (08:09)
[2017-12-05] MEDS: ASCORBIC ACID 500 MG TAB PO (08:10)
[2017-12-05] MEDS: APIXABAN 5 MG TABLET PO ×2 (08:10→21:00)
[2017-12-05] MEDS: LACTOBACILLUS RHAMNOSUS CAP PO ×2 (08:21→21:00)
[2017-12-05] MEDS: MAGNESIUM CHLORIDE (SR) 64 MG TAB PO (08:21)
[2017-12-05] MEDS: FOLIC ACID 0.4 MG TAB PO (08:21)
[2017-12-05] MEDS: FAMOTIDINE 20 MG TAB PO (08:21)
[2017-12-05] MEDS: AMIODARONE 200 MG TAB PO (08:29)
[2017-12-05] MEDS: NYSTATIN 30 GM POWDER BTL TOP ×2 (09:17→20:59)
[2017-12-05 16:24] LABS: GLUCOSE 99 mg/dl (70-220)
[2017-12-05] MEDS: ATORVASTATIN 10 MG TAB PO (21:00)
[2017-12-05] MEDS: ACETAMINOPHEN 325 MG TAB PO (22:21)
[2017-12-05] MEDS: LORAZEPAM 0.5 MG TAB PO (22:21)
[2017-12-06] MEDS: ACCU-CHEK XX (02:00)
[2017-12-06 07:07] LABS: ANION GAP 13 (8-16); BLOOD UREA NITROGEN 25 mg/dl (7-20); CARBON DIOXIDE 23 mmol/L (21-31); CHLORIDE 110 mmol/L (97-110); CREATININE 1.48 mg/dl (0.61-1.24); GLUCOSE 96 mg/dl (70-220); POTASSIUM 3.9 mmol/L (3.5-5.1); SODIUM 142 mmol/L (135-144)
[2017-12-06] MEDS: INSULIN ASPART [NOVOLOG] 3 ML PEN SC ×7 (07:35→21:17)
[2017-12-06] MEDS: INSULIN GLARGINE [LANTus] (100 UNITS/ML) SYG SC (07:50)
[2017-12-06] MEDS: APIXABAN 5 MG TABLET PO ×2 (08:25→21:06)
[2017-12-06] MEDS: FAMOTIDINE 20 MG TAB PO (08:25)
[2017-12-06] MEDS: LACTOBACILLUS RHAMNOSUS CAP PO ×2 (08:25→21:06)
[2017-12-06] MEDS: MAGNESIUM CHLORIDE (SR) 64 MG TAB PO (08:25)
[2017-12-06] MEDS: ASCORBIC ACID 500 MG TAB PO (08:26)
[2017-12-06] MEDS: FOLIC ACID 0.4 MG TAB PO (08:26)
[2017-12-06] MEDS: AMIODARONE 200 MG TAB PO (08:26)
[2017-12-06] MEDS: NYSTATIN 30 GM POWDER BTL TOP ×2 (09:00→21:22)
[2017-12-06] MEDS: LORAZEPAM 0.5 MG TAB PO (17:10)
[2017-12-06] MEDS: ATORVASTATIN 10 MG TAB PO (21:06)
[2017-12-07] MEDS: LORAZEPAM 0.5 MG TAB PO ×2 (01:30→15:57)
[2017-12-07] MEDS: ACCU-CHEK XX (02:11)
[2017-12-07 07:37] LABS: ADD MAN DIFF? NO
[2017-12-07 07:39] LABS: WHITE BLOOD COUNT 7.8 10^3/ul (4.8-10.8)
[2017-12-07 07:39] LABS: BASOPHILS % 0.5 % (0.0-2.0); EOSINOPHILS # 0.2 10^3/ul (0.0-0.5); EOSINOPHILS % 1.9 % (0.0-7.0); HEMATOCRIT 33.4 % (42.0-52.0); HEMOGLOBIN 10.7 g/dl (14.0-18.0); IMMATURE GRANS #M 0.02 10^3/ul; IMMATURE GRANS % (M) 0.3 %; LYMPHOCYTES # 3.5 10^3/ul (0.8-2.9); LYMPHOCYTES % 45.4 % (15.0-51.0); MEAN CORPUSCULAR HEMOGLOBIN 27.7 pg (29.0-33.0); MEAN CORPUSCULAR VOLUME 86.5 fl (82.0-101.0); MEAN PLATELET VOLUME 11.7 fl (7.4-10.4); MONOCYTE # 0.8 10^3/ul (0.3-0.9); MONOCYTES % 10.4 % (0.0-11.0); NEUTROPHIL # 3.2 10^3/ul (1.6-7.5); NEUTROPHILS % 41.5 % (39.0-77.0); PLATELET COUNT 165 10^3/UL (140-415); RED BLOOD COUNT 3.86 10^6/ul (4.70-6.10); RED CELL DISTRIBUTION WIDTH 13.4 % (11.5-14.5)
[2017-12-07 07:57] LABS: ANION GAP 12 (8-16); BLOOD UREA NITROGEN 27 mg/dl (7-20); CALCIUM 9.1 mg/dl (8.4-10.2); CARBON DIOXIDE 25 mmol/L (21-31); CHLORIDE 108 mmol/L (97-110); CREATININE 1.57 mg/dl (0.61-1.24); GLUCOSE 185 mg/dl (70-220); POTASSIUM 4.2 mmol/L (3.5-5.1); SODIUM 141 mmol/L (135-144)
[2017-12-07] MEDS: INSULIN ASPART [NOVOLOG] 3 ML PEN SC ×7 (07:57→21:36)
[2017-12-07] MEDS: INSULIN GLARGINE [LANTus] (100 UNITS/ML) SYG SC (07:58)
[2017-12-07] MEDS: FOLIC ACID 0.4 MG TAB PO (08:05)
[2017-12-07] MEDS: ASCORBIC ACID 500 MG TAB PO (08:05)
[2017-12-07] MEDS: AMIODARONE 200 MG TAB PO (08:06)
[2017-12-07] MEDS: MAGNESIUM CHLORIDE (SR) 64 MG TAB PO (08:06)
[2017-12-07] MEDS: FAMOTIDINE 20 MG TAB PO (08:07)
[2017-12-07] MEDS: APIXABAN 5 MG TABLET PO ×2 (08:07→21:32)
[2017-12-07] MEDS: LACTOBACILLUS RHAMNOSUS CAP PO ×2 (08:07→21:32)
[2017-12-07] MEDS: NYSTATIN 30 GM POWDER BTL TOP ×2 (08:08→21:33)
[2017-12-07] MEDS: ATORVASTATIN 10 MG TAB PO (21:32)
[2017-12-07] MEDS: ZOLPIDEM 5 MG TAB PO (21:41)
[2017-12-08] MEDS: ACCU-CHEK XX (02:00)
[2017-12-08] MEDS: LORAZEPAM 0.5 MG TAB PO (02:03)
[2017-12-08] MEDS: INSULIN ASPART [NOVOLOG] 3 ML PEN SC ×7 (08:37→21:31)
[2017-12-08] MEDS: INSULIN GLARGINE [LANTus] (100 UNITS/ML) SYG SC (08:38)
[2017-12-08] MEDS: AMIODARONE 200 MG TAB PO (10:33)
[2017-12-08] MEDS: LACTOBACILLUS RHAMNOSUS CAP PO ×2 (10:35→21:21)
[2017-12-08] MEDS: APIXABAN 5 MG TABLET PO ×2 (10:38→21:20)
[2017-12-08] MEDS: MAGNESIUM CHLORIDE (SR) 64 MG TAB PO (10:40)
[2017-12-08] MEDS: FAMOTIDINE 20 MG TAB PO (10:42)
[2017-12-08] MEDS: ASCORBIC ACID 500 MG TAB PO (10:43)
[2017-12-08] MEDS: FOLIC ACID 0.4 MG TAB PO (10:46)
[2017-12-08] MEDS: NYSTATIN 30 GM POWDER BTL TOP ×2 (11:57→21:21)
[2017-12-08] MEDS: ATORVASTATIN 10 MG TAB PO (21:21)
[2017-12-08] MEDS: ZOLPIDEM 5 MG TAB PO (21:23)
[2017-12-09] MEDS: ACCU-CHEK XX (02:00)
[2017-12-09] MEDS: INSULIN ASPART [NOVOLOG] 3 ML PEN SC ×8 (07:35→21:11)
[2017-12-09] MEDS: LACTOBACILLUS RHAMNOSUS CAP PO ×2 (08:23→21:11)
[2017-12-09] MEDS: ASCORBIC ACID 500 MG TAB PO (08:23)
[2017-12-09] MEDS: INSULIN GLARGINE [LANTus] (100 UNITS/ML) SYG SC (08:23)
[2017-12-09] MEDS: FAMOTIDINE 20 MG TAB PO (08:23)
[2017-12-09] MEDS: APIXABAN 5 MG TABLET PO ×2 (08:23→21:12)
[2017-12-09] MEDS: FOLIC ACID 0.4 MG TAB PO (08:23)
[2017-12-09] MEDS: NYSTATIN 30 GM POWDER BTL TOP ×2 (10:30→21:12)
[2017-12-09] MEDS: AMIODARONE 200 MG TAB PO (10:31)
[2017-12-09] MEDS: MAGNESIUM CHLORIDE (SR) 64 MG TAB PO (10:31)
[2017-12-09] MEDS: ATORVASTATIN 10 MG TAB PO (21:11)
[2017-12-09] MEDS: ACETAMINOPHEN 325 MG TAB PO (21:12)
[2017-12-09] MEDS: ZOLPIDEM 5 MG TAB PO (21:12)
[2017-12-10] MEDS: ACCU-CHEK XX (02:00)
[2017-12-10 06:52] LABS: ADD MAN DIFF? NO
[2017-12-10 07:06] LABS: BASOPHILS % 0.4 % (0.0-2.0); EOSINOPHILS # 0.2 10^3/ul (0.0-0.5); HEMATOCRIT 36.1 % (42.0-52.0); HEMOGLOBIN 11.4 g/dl (14.0-18.0); LYMPHOCYTES # 3.6 10^3/ul (0.8-2.9); LYMPHOCYTES % 44.4 % (15.0-51.0); MEAN CORPUSCULAR HEMOGLOBIN 26.5 pg (29.0-33.0); MEAN CORPUSCULAR HGB CONC 31.6 g/dl (32.0-37.0); MEAN PLATELET VOLUME 11.4 fl (7.4-10.4); MONOCYTE # 0.8 10^3/ul (0.3-0.9); MONOCYTES % 9.6 % (0.0-11.0); NEUTROPHIL # 3.5 10^3/ul (1.6-7.5); NEUTROPHILS % 43.4 % (39.0-77.0); PLATELET COUNT 153 10^3/UL (140-415); RED CELL DISTRIBUTION WIDTH 13.8 % (11.5-14.5)
[2017-12-10 07:06] LABS: WHITE BLOOD COUNT 8.1 10^3/ul (4.8-10.8)
[2017-12-10 07:28] LABS: ALANINE AMINOTRANSFERASE 25 IU/L (13-69); ALKALINE PHOSPHATASE 62 IU/L (42-121); ANION GAP 11 (8-16); ASPARTATE AMINO TRANSFERASE 15 IU/L (15-46); BILIRUBIN,INDIRECT 0.7 mg/dl (0-1.1); BILIRUBIN,TOTAL 0.7 mg/dl (0.2-1.3); BLOOD UREA NITROGEN 28 mg/dl (7-20); CARBON DIOXIDE 24 mmol/L (21-31); CHLORIDE 111 mmol/L (97-110); CREATININE 1.36 mg/dl (0.61-1.24); GLUCOSE 109 mg/dl (70-220); POTASSIUM 3.8 mmol/L (3.5-5.1); SODIUM 142 mmol/L (135-144)
[2017-12-10] MEDS: INSULIN ASPART [NOVOLOG] 3 ML PEN SC ×2 (07:35→08:36)
[2017-12-10 07:50] LABS: INR 1.14; PROTIME 14.8 Sec (11.9-14.9); PT RATIO 1.2
[2017-12-10] MEDS: INSULIN GLARGINE [LANTus] (100 UNITS/ML) SYG SC (08:37)
[2017-12-10] MEDS: MAGNESIUM CHLORIDE (SR) 64 MG TAB PO (09:29)
[2017-12-10] MEDS: LACTOBACILLUS RHAMNOSUS CAP PO (09:29)
[2017-12-10] MEDS: APIXABAN 5 MG TABLET PO (09:29)
[2017-12-10] MEDS: ASCORBIC ACID 500 MG TAB PO (09:29)
[2017-12-10] MEDS: AMIODARONE 200 MG TAB PO (09:29)
[2017-12-10] MEDS: FOLIC ACID 0.4 MG TAB PO (09:29)
== END 2017-12-10 11:15 | disposition home health service (06) | DRG 56 ==
LOC: VRC 22:00
DX: I69.851 Hemiplegia and hemiparesis following other cerebrovascular disease affecting right dominant side (principal); I62.03 Nontraumatic chronic subdural hemorrhage; F01.51 Vascular dementia, unspecified severity, with behavioral disturbance; N17.9 Acute kidney failure, unspecified; D68.59 Other primary thrombophilia; F41.9 Anxiety disorder, unspecified; E11.9 Type 2 diabetes mellitus without complications; N40.0 Benign prostatic hyperplasia without lower urinary tract symptoms; I10 Essential (primary) hypertension; I48.0 Paroxysmal atrial fibrillation
CPT/HCPCS: 76775; 80048; 80053; 81003; 82550; 82570; 82947; 82962; 83735; 84300; 84560; 85025; 85610; 85730; 87081; 87086; 89190; 92507; 92526; 92610; 93005; 97110; 97112; 97116; 97163; 97167; 97530; 97535; 97542